=== PATIENT | female | born 1995 | race Caucasian/White ===

== ENCOUNTER 2017-02-24 21:16 | Emergency (ER) | payer MEDICAID ==
[2017-02-24 21:57] VITALS: BP 111/64
--- NOTE | 2017-02-24 23:24 | ER Document Report ---
ED General - General Chief Complaint: Drug Abuse Stated Complaint: HEADACHE,NAUSEA Time Seen by Provider: 02/24/17 23:24 Mode of Arrival: Ambulatory Information source: Patient Notes: This is a 22-year-old with a history of Percocet and oxycodone abuse who presents to the emergency room with which were withdrawal. Patient states she has had some nausea and some intermittent headache. She does report some right rib pain. Patient also states she has not had a period since October and then she may be . TRAVEL OUTSIDE OF THE [place] IN LAST 30 DAYS: No - HPI Onset: Just prior to arrival Onset/Duration: Sudden Quality of pain: No pain Severity: None Pain Level: Denies Associated symptoms: Nausea. denies: Chest pain, Shortness of breath Exacerbated by: Denies Relieved by: Denies Similar symptoms previously: No Recently seen / treated by doctor: No - Related Data Allergies/Adverse Reactions: No Known Allergies Allergy (Verified 02/24/17 21:50) Past Medical History - General Information source: Patient - Social History Smoking Status: Never Smoker Cigarette use (# per day): No Chew tobacco use (# tins/day): No Frequency of alcohol use: None Drug Abuse: Prescription drugs Lives with: Family Family History: Reviewed & Not Pertinent Patient has suicidal ideation: No Patient has homicidal ideation: No Pulmonary Medical History: Reports: Hx Asthma Renal/ Medical History: Denies: Hx Peritoneal Dialysis Psychiatric Medical History: Reports: Hx Attention Deficit Hyperactivity Disorder, Hx Bipolar Disorder - Immunizations Immunizations up to date: Yes Hx Diphtheria, Pertussis, Tetanus Vaccination: Yes Review of Systems - Review of Systems Constitutional: denies: Chills, Fever EENT: No symptoms reported Cardiovascular: No symptoms reported Respiratory: No symptoms reported Gastrointestinal: See HPI Genitourinary: No symptoms reported Female Genitourinary: No symptoms reported Musculoskeletal: No symptoms reported Skin: No symptoms reported Hematologic/Lymphatic: No symptoms reported Neurological/Psychological: No symptoms reported Physical Exam - Vital signs Vitals: Temp Pulse Resp BP Pulse Ox 98.6 F 67 16 111/64 97 02/24/17 21:50 02/24/17 21:50 02/24/17 21:50 02/24/17 21:50 02/24/17 21:50 Notes: Physical exam: GENERAL: 22-year-old female, alert and oriented 3, no acute distress. Patient requesting food at this time. HEAD: Atraumatic, normocephalic. EYES: Pupils equal round and reactive to light, extraocular movements intact, sclera anicteric, conjunctiva are normal. ENT: TMs normal, nares patent, oropharynx clear without exudates. Moist mucous membranes. NECK: Normal range of motion, supple without obvious mass or JVD. LUNGS: Breath sounds clear to auscultation bilaterally and equal. No wheezes rales or rhonchi. HEART: Regular rate and rhythm without murmurs, rubs or gallops. ABDOMEN: Soft, normoactive bowel sounds. No tenderness to palpation. No guarding, no rebound. No masses appreciated. EXTREMITIES: Normal range of motion, no pitting or edema. No clubbing or cyanosis. NEUROLOGICAL: Cranial nerves II through XII grossly intact. Normal speech, moving all extremities. PSYCH: Normal mood, normal affect. SKIN: Warm, Dry, normal turgor, no rashes or lesions noted. Bedside ultrasound: Patient does have an intrauterine at 14 weeks gestation with a heartbeat of 160. Course - Vital Signs Vital signs: Temp Pulse Resp BP Pulse Ox 98.6 F 67 16 111/64 97 02/24/17 21:50 02/24/17 21:50 02/24/17 21:50 02/24/17 21:50 02/24/17 21:50 - Laboratory Laboratory results interpreted by me: 02/24/17 23:26 Urine Urobilinogen 2.0 H Urine Ascorbic Acid 40 H Discharge - Discharge Clinical Impression: Intrauterine , Opiate withdrawal Condition: Stable Disposition: HOME, SELF-CARE Additional Instructions: As we discussed, the ultrasound shows a viable intrauterine at approximately 14 weeks gestation with a good heartbeat. Your urine test was normal. Because of the , you have to be careful about what medicines he take. You can take Benadryl for the withdrawal symptoms. Drink plenty of fluids and try to eat healthy. Prescriptions: Diphenhydramine HCl [Benadryl 25 mg Capsule] 25 mg PO Q6 PRN #14 capsule PRN Reason: Referrals: HEALTH DEPT,[facility] [NO LOCAL MD] - Follow up as needed (follow-up with the health department for your )
[2017-02-25 00:15] LABS: APPEARANCE,URINE SLIGHTLY-CLOUDY; BILIRUBIN,URINE NEGATIVE (NEGATIVE); GLUCOSE, URINE NEGATIVE (NEGATIVE); KETONES,URINE NEGATIVE (NEGATIVE); LEUKOCYTE ESTERASE,URINE NEGATIVE (NEGATIVE); NITRITE,URINE NEGATIVE (NEGATIVE); PROTEIN,URINE NEGATIVE (NEGATIVE)
== END 2017-02-25 01:39 | disposition home or self-care (01) ==
LOC: ER 21:16
DX: O99.322 Drug use complicating pregnancy, second trimester (principal); F11.23 Opioid dependence with withdrawal; R51 Headache; R11.0 Nausea; Z3A.14 14 weeks gestation of pregnancy
CPT/HCPCS: 81001; 87086; 99284

== ENCOUNTER 2018-04-07 13:43 | Emergency (ER) | payer SELFPAY ==
--- NOTE | 2018-04-07 14:37 | ER Document Report ---
Addendum entered and electronically signed by JUANI PHAN MD 04/09/18 11:15: Discharge - Discharge Clinical Impression: Acute confusion, Cocaine abuse UTI (urinary tract infection) Qualifiers: Urinary tract infection type: acute cystitis Hematuria presence: without hematuria Qualified Code(s): N30.00 - Acute cystitis without hematuria Condition: Stable Disposition: HOME, SELF-CARE Additional Instructions: You have been evaluated both medical and behavioral health teams and obtained appropriate for discharge. You are highly encouraged to follow-up with outpatient mental health and substance use treatment. You have been provided a local resource list of area providers, including mobile crisis contact information, if you change your mind and would like assistance. COCAINE ABUSE: Cocaine causes many dangerous medical problems. Problems can occur even with "usual" amounts. Cocaine affects judgement, creating a sense of invulnerability. Cocaine users often make bad decisions that seem "great" at the time. Most cocaine users eventually will be hurt by bad job performance, damaged personal relations, crime, and unsafe sexual practices. Toxic effects of cocaine can include seizures, hallucinations, delusions, high blood pressure, heart damage, or sudden . There's always the risk of a "bad batch." But heart attacks, brain hemorrhages, or cardiac arrest can occur unpredictably even with "normal" use. Injection of cocaine is risky for abscesses, endocarditis (heart infec tion), pneumonia, and AIDS. Withdrawal from cocaine often causes anxiety and drug cravings. Some users become paranoid and psychotic. Many treatment programs are available, but you must make the decision to quit. Medication can be prescribed to control the symptoms of cocaine toxicity (beta blockers or benzodiazepines). Withdrawal symptoms may require tranquilizers. FOLLOW-UP CARE: If you have been referred to a physician for follow-up care, call the physicians office for an appointment as you were instructed or within the next two days. If you experience worsening or a significant change in your symptoms, notify the physician immediately or return to the Emergency Department at any time for re-evaluation. Referrals: [facility] [Outside] - Follow up as needed JUANI KINNEY MD [Primary Care Provider] - Follow up as needed Addendum entered and electronically signed by AFY DAVIES LCSWA 04/09/18 11:04: Discharge - Discharge Clinical Impression: Acute confusion, Cocaine abuse UTI (urinary tract infection) Qualifiers: Urinary tract infection type: acute cystitis Hematuria presence: without hematuria Qualified Code(s): N30.00 - Acute cystitis without hematuria Condition: Stable Disposition: HOME, SELF-CARE Additional Instructions: You have been evaluated both medical and behavioral health teams and obtained appropriate for discharge. You are highly encouraged to follow-up with outpatient mental health and substance use treatment. You have been provided a local resource list of area providers, including mobile crisis contact information, if you change your mind and would like assistance. COCAINE ABUSE: Cocaine causes many dangerous medical problems. Problems can occur even with "usual" amounts. Cocaine affects judgement, creating a sense of invulnerability. Cocaine users often make bad decisions that seem "great" at the time. Most cocaine users eventually will be hurt by bad job performance, damaged personal relations, crime, and unsafe sexual practices. Toxic effects of cocaine can include seizures, hallucinations, delusions, high blood pressure, heart damage, or sudden . There's always the risk of a "bad batch." But heart attacks, brain hemorrhages, or cardiac arrest can occur unpredictably even with "normal" use. Injection of cocaine is risky for abscesses, endocarditis (heart infec tion), pneumonia, and AIDS. Withdrawal from cocaine often causes anxiety and drug cravings. Some users become paranoid and psychotic. Many treatment programs are available, but you must make the decision to quit. Medication can be prescribed to control the symptoms of cocaine toxicity (beta blockers or benzodiazepines). Withdrawal symptoms may require tranquilizers. FOLLOW-UP CARE: If you have been referred to a physician for follow-up care, call the physicians office for an appointment as you were instructed or within the next two days. If you experience worsening or a significant change in your symptoms, notify the physician immediately or return to the Emergency Department at any time for re-evaluation. Referrals: JUANI KINNEY MD [Primary Care Provider] - Follow up as needed [facility] [Outside] - Follow up as needed Original Note: ED Psych Disorder / Suicide - General Stated Complaint: ALTERED MENTAL STATUS Time Seen by Provider: 04/07/18 14:06 TRAVEL OUTSIDE OF THE [place] IN LAST 30 DAYS: No - HPI Notes: Patient is a 23-year-old female that presents to the emergency department for chief complaint of altered mental status. Patient was brought in by police who provided most of the HPI. Patient was found in the car of a stranger. They called 911 to have her removed from the vehicle. Patient appeared to be confuse when police arrived that he brought her to the emergency room. Patient currently has no complaints. She states her name is Lesley. When I asked her the year she states it is "12". She denies any homicidal or suicidal ideation. She denies any drug or alcohol use. Past Medical History: Negative Past Surgical History: Negative Social History: Denies tobacco, denies alcohol, denies drug use Family History: Reviewed and noncontributory for presenting illness Allergies: Reviewed, see documented allergy list. REVIEW OF SYSTEMS: CONSTITUTIONAL : No fever No chills No diaphoresis No recent illness EENT: No vision changes No congestion No sore throat CARDIOVASCULAR: No chest pain No palpitations RESPIRATORY: No shortness of breath No cough No difficulty breathing GASTROINTESTINAL: No abdominal pain No nausea No vomiting No diarrhea GENITOURINARY: No dysuria No hematuria No difficulty urinating MUSCULOSKELETAL: No back pain No leg pain No arm pain SKIN: No rashes No lesions LYMPHATIC: No swollen, enlarged glands. NEUROLOGICAL: No lightheadedness No headache No weakness No paresthesias PSYCHIATRIC: No anxiety No depression PHYSICAL EXAMINATION: Vital signs reviewed, nursing noted reviewed. GENERAL: Well-appearing, well-nourished and in no acute distress. HEAD: Atraumatic, normocephalic. EYES: Eyes appear normal, extraocular movements intact, sclera anicteric, conjunctiva are normal. ENT: nares patent, oropharynx clear without exudates. Moist mucous membranes. NECK: Normal range of motion, supple without lymphadenopathy LUNGS: Breath sounds clear to auscultation bilaterally and equal. No wheezes rales or rhonchi. HEART: Regular rate and rhythm without murmurs ABDOMEN: Soft, nontender, normoactive bowel sounds. No rebound, guarding, or rigidity. No masses appreciated. EXTREMITIES: Nontender, good range of motion, no pitting or edema. NEUROLOGICAL: Oriented to person and place, disoriented to time. Moves all extre mities spontaneously Motor and sensory grossly intact on exam. PSYCH: Flat affect, tangential thoughts SKIN: Warm, Dry, normal turgor, no rashes or lesions noted on exposed skin - Related Data Allergies/Adverse Reactions: No Known Allergies Allergy (Verified 02/24/17 21:50) Past Medical History - Social History Smoking Status: Never Smoker Family History: Reviewed & Not Pertinent Pulmonary Medical History: Reports: Hx Asthma Renal/ Medical History: Denies: Hx Peritoneal Dialysis Psychiatric Medical History: Reports: Hx Attention Deficit Hyperactivity Disorder, Hx Bipolar Disorder - Immunizations Immunizations up to date: Yes Hx Diphtheria, Pertussis, Tetanus Vaccination: Yes Physical Exam - Vital signs Vitals: Temp Pulse Resp BP Pulse Ox 98.3 F 80 18 130/77 H 98 04/07/18 14:06 04/07/18 14:06 04/07/18 14:06 04/07/18 14:06 04/07/18 14:06 Course - Re-evaluation Re-evalutation: 04/07/18 14:37 Vitals reviewed. Nursing notes reviewed. Patient is in no acute distress but does appear confused or on a chemical substance. Psych evaluated her and r eviewed previous visits to the emergency room which were for drug use. 04/07/18 18:28 Patient has remained hyperactive and agitated. She was given a dose of Ativan for symptomatic management. Urinalysis shows urinary tract infection however she has no leukocytosis or other Sirs criteria. She is not septic. She was given a dose of Rocephin in the ED for her UTI. She did test positive for coca ine and marijuana which may partially explain her current behavior. She is medically cleared for evaluation by psych in the morning. Laboratory 04/07/18 04/07/18 04/07/18 14:35 14:35 14:35 WBC 6.8 RBC 4.85 Hgb 12.6 Hct 38.6 MCV 80 MCH 25.9 L MCHC 32.5 RDW 18.3 H Plt Count 363 Seg Neutrophils % 49.6 Lymphocytes % 42.2 Monocytes % 6.5 Eosinophils % 1.2 Basophils % 0.5 Absolute Neutrophils 3.4 Absolute Lymphocytes 2.9 Absolute Monocytes 0.4 Absolute Eosinophils 0.1 Absolute Basophils 0.0 Sodium 145.0 Potassium 4.4 Chloride 107 Carbon Dioxide 25 Anion Gap 13 BUN 9 Creatinine 0.71 Est GFR ( Amer) > 60 Est GFR (Non-Af Amer) > 60 Glucose 97 Calcium 10.1 Total Bilirubin 0.4 Direct Bilirubin 0.2 Neonat Total Bilirubin Not Reportable Neonat Direct Bilirubin Not Reportable Neonat Indirect Bili Not Reportable AST 19 ALT 22 Alkaline Phosphatase 65 Total Protein 7.7 Albumin 4.6 Urine Color YELLOW Urine Appearance CLOUDY Urine pH 6.0 Ur Specific [place] 1.024 Urine Protein 30 H Urine Glucose (UA) NEGATIVE Urine Ketones NEGATIVE Urine Blood NEGATIVE Urine Nitrite POSITIVE H Urine Bilirubin NEGATIVE Urine Urobilinogen 4.0 H Ur Leukocyte Esterase MODERATE H Urine WBC (Auto) 63 Urine RBC (Auto) 21 Urine Bacteria (Auto) TRACE Squamous Epi Cells Auto 21 Urine Mucus (Auto) MANY Urine Ascorbic Acid NEGATIVE Urine HCG, Qual Salicylates < 1.0 L Urine Opiates Screen Urine Methadone Screen Acetaminophen < 10 L Ur Barbiturates Screen Ur Phencyclidine Scrn Ur Amphetamines Screen U Benzodiazepines Scrn Urine Cocaine Screen U Marijuana (THC) Screen Serum Alcohol < 10 04/07/18 04/07/18 14:35 14:35 WBC RBC Hgb Hct MCV MCH MCHC RDW Plt Count Seg Neutrophils % Lymphocytes % Monocytes % Eosinophils % Basophils % Absolute Neutrophils Absolute Lymphocytes Absolute Monocytes Absolute Eosinophils Absolute Basophils Sodium Potassium Chloride Carbon Dioxide Anion Gap BUN Creatinine Est GFR ( Amer) Est GFR (Non-Af Amer) Glucose Calcium Total Bilirubin Direct Bilirubin Neonat Total Bilirubin Neonat Direct Bilirubin Neonat Indirect Bili AST ALT Alkaline Phosphatase Total Protein Albumin Urine Color Urine Appearance Urine pH Ur Specific [place] Urine Protein Urine Glucose (UA) Urine Ketones Urine Blood Urine Nitrite Urine Bilirubin Urine Urobilinogen Ur Leukocyte Esterase Urine WBC (Auto) Urine RBC (Auto) Urine Bacteria (Auto) Squamous Epi Cells Auto Urine Mucus (Auto) Urine Ascorbic Acid Urine HCG, Qual NEGATIVE Salicylates Urine Opiates Screen NEGATIVE Urine Methadone Screen NEGATIVE Acetaminophen Ur Barbiturates Screen NEGATIVE Ur Phencyclidine Scrn NEGATIVE Ur Amphetamines Screen U Benzodiazepines Scrn NEGATIVE Urine Cocaine Screen UNCONFIRMED POSITIVE U Marijuana (THC) Screen UNCONFIRMED POSITIVE Serum Alcohol 04/07/18 18:29 - Vital Signs Vital signs: Temp Pulse Resp BP Pulse Ox 98.3 F 80 18 130/77 H 98 04/07/18 14:06 04/07/18 14:06 04/07/18 14:06 04/07/18 14:06 04/07/18 14:06 - Laboratory Result Diagrams: 04/07/18 14:35 04/07/18 14:35 Laboratory results interpreted by me: 04/07/18 04/07/18 04/07/18 14:35 14:35 14:35 MCH 25.9 L RDW 18.3 H Urine Protein 30 H Urine Nitrite POSITIVE H Urine Urobilinogen 4.0 H Ur Leukocyte Esterase MODERATE H Salicylates < 1.0 L Acetaminophen < 10 L - EKG Interpretation by Me Additional EKG results interpreted by me: 04/07/18 14:39 Interpreted by myself 1434: Normal sinus rhythm, rate 75, normal axis, no ectopy, no ST elevation Discharge - Discharge Clinical Impression: Acute confusion, Cocaine abuse UTI (urinary tract infection) Qualifiers: Urinary tract infection type: acute cystitis Hematuria presence: without hematuria Qualified Code(s): N30.00 - Acute cystitis without hematuria Condition: Stable Disposition: PSYCH HOSP/UNIT
--- NOTE | 2018-04-07 15:00 | PSYCHOLOGICAL NOTE ---
Psych Note - Psych Note Date seen by psych provider: 04/07/18 Time seen by psych provider: 14:35 Psych Note: No medication recommendation at this time Patient arrived to [facility] ED via EMS. Patient reportedly was sitting in a stranger's car; [employer] was called. Patient immediately attempted to hug clinician and identifies clinician as "Awa." It was explained to patient that the clinician was not Awa. Patient then reported to clinician that the clinician spells her name wrong after looking at the clinician's name ge. Patient was able to correctly identify that she is currently in the hospital in [facility]. Patient adamantly denies substance abuse however clearly is demonstrating altered mental status. Patient is unsteady on her feet, has difficulty concentrating, making odd comments and connections. When asked that the patient has a mental health history she denies. Patient is alert and orientated to person, place. It is unclear if patient is orientated to time and circumstance as patient appears to be under the influence and guarded. Patient is unkempt with unwashed hair and dirty clothes. Cognitive functioning is currently impaired; probable cause from substance use. Medication recommendations per [facility]'s contracted psychiatrist Dr. Carlos IZAGUIRRE are as follows Haldol 5 mg every 8 hours as needed Diagnosis Substance abuse per history 2011 patient reported alcohol and marijuana abuse 2016 patient was seen for opiate withdrawal 296.80 (F31.9) unspecified bipolar and related disorder per history Impression\\plan: Patient is recommended for IVC petition for overnight mental health observation. Patient is demonstrating behaviors indicating she is under the influence. Patient does have a history of substance abuse. At this time patient's insight, judgment, impulse control is impaired. At any time, if attending physician feels patient is appropriate for discharge, patient can be cleared from behavioral health and discharged. Otherwise, patient will be re- evaluated once sober. Dr. Wells was consulted on the care and management of this patient; attending physician is in agreement with recommendations and disposition.
[2018-04-07 15:02] LABS: ABSOLUTE EOSINOPHILS # (AUTO) 0.1 10^3/uL (0.0-0.6); ABSOLUTE LYMPHOCYTES (AUTO) 2.9 10^3/uL (0.5-4.7); ABSOLUTE MONOCYTES (AUTO) 0.4 10^3/uL (0.1-1.4); ABSOLUTE NEUT (AUTO) 3.4 10^3/uL (1.7-8.2); BASOPHILS % (AUTO) 0.5 % (0-2); EOSINOPHILS % (AUTO) 1.2 % (0-6); HEMATOCRIT 38.6 % (36.0-47.0); HEMOGLOBIN 12.6 g/dL (12.0-15.5); LYMPHOCYTES % (AUTO) 42.2 % (13-45); MEAN CORPUSCULAR HEMOGLOBIN 25.9 pg (27.0-33.4); MEAN CORPUSCULAR HGB CONC 32.5 g/dL (32.0-36.0); MEAN CORPUSCULAR VOLUME 80 fl (80-97); MONOCYTES % (AUTO) 6.5 % (3-13); PLATELET COUNT 363 10^3/uL (150-450); RED BLOOD COUNT 4.85 10^6/uL (3.72-5.28); RED CELL DISTRIBUTION WIDTH 18.3 % (11.5-14.0); SEGMENTED NEUTROPHILS % (AUTO) 49.6 % (42-78); TOTAL CELLS COUNTED % (AUTO) 100 %; WHITE BLOOD COUNT 6.8 10^3/uL (4.0-10.5)
[2018-04-07 15:06] LABS: APPEARANCE,URINE CLOUDY; BILIRUBIN,URINE NEGATIVE (NEGATIVE); COLOR,URINE YELLOW; GLUCOSE, URINE NEGATIVE (NEGATIVE); KETONES,URINE NEGATIVE (NEGATIVE); LEUKOCYTE ESTERASE,URINE MODERATE (NEGATIVE); NITRITE,URINE POSITIVE (NEGATIVE); PROTEIN,URINE 30 mg/dL (NEGATIVE); URINE SPECIFIC GRAVITY 1.024
[2018-04-07] MEDS ORDERED: CEFTRIAXONE INJ 1000 MG VIAL IV ONE (15:13)
[2018-04-07 15:16] LABS: ALANINE AMINOTRANSFERASE 22 U/L (9-52); ALBUMIN 4.6 g/dL (3.5-5.0); ALKALINE PHOSPHATASE 65 U/L (38-126); ANION GAP 13 (5-19); ASPARTATE AMINO TRANSFERASE 19 U/L (14-36); BILIRUBIN,DIRECT 0.2 mg/dL (0.0-0.4); BILIRUBIN,TOTAL 0.4 mg/dL (0.2-1.3); BLOOD UREA NITROGEN 9 mg/dL (7-20); CALCIUM 10.1 mg/dL (8.4-10.2); CARBON DIOXIDE 25 mmol/L (22-30); CHLORIDE 107 mmol/L (98-107); GLUCOSE 97 mg/dL (75-110); POTASSIUM 4.4 mmol/L (3.6-5.0); TOTAL PROTEIN 7.7 g/dL (6.3-8.2)
[2018-04-07 15:17] LABS: ACETAMINOPHEN < 10 ug/mL (10-30); ALCOHOL < 10 mg/dL (NONE DETECTED); SALICYLATE < 1.0 mg/dL (2.0-20.0)
[2018-04-07 15:19] LABS: URINE BARBITURATES SCREEN NEGATIVE; URINE BENZODIAZEPINES SCREEN NEGATIVE; URINE COCAINE SCREEN UNCONFIRMED POSITIVE; URINE MARIJUANA (THC) SCREEN UNCONFIRMED POSITIVE; URINE METHADONE SCREEN NEGATIVE; URINE PHENCYCLIDINE SCREEN NEGATIVE
[2018-04-07] MEDS ORDERED: LORAZEPAM 1 MG TABLET PO ONE (17:16)
--- NOTE | 2018-04-07 18:15 | EKG REPORT ---
SEVERITY:- NORMAL ECG - SINUS RHYTHM : Confirmed by: Efrem Perkins MD 07-Apr-2018 18:13:54
[2018-04-07] MEDS ORDERED: ZIPRASIDONE MESYLATE INJ/PF 20 MG SDV IM ONE (20:28)
[2018-04-08] MEDS ORDERED: HALOPERIDOL LACTATE INJ 5 MG/1 ML VIAL IM ONE (11:12)
[2018-04-08] MEDS: BENZTROPINE MESYLATE 1 MG TABLET PO SCH (11:45)
--- NOTE | 2018-04-08 17:07 | PSYCHOLOGICAL NOTE ---
Psych Note - Psych Note Date seen by psych provider: 04/08/18 Time seen by psych provider: 07:40 Psych Note: Reason for Consult: re-evaluation S/A and bizarre behavior Contact Permissions: Mala (mom) [phone], Du (sister) [phone] Patient is a 23 yo female presenting to ED yesterday with LE after being found in a strangers car. She has documented hx of S/A and toxicology was positive for cocaine and THC. Patient today is eating breakfast upon arrival to her room is compulsively cramming food into her mouth without taking time to breathe or chew and talking around her food. Alerted patient that it was difficult to understand her and there was no change in this behavior if anything, it worsened. Eye contact was poor and statements required clarification multiple times. However, she was able to communicate that she has no memory of why she was brought into ED/thinks it was her parents then states it was a joke her cousin was playing to see if she was using drugs. Pt admits using cocaine for last 2 days, occasional marijuana use, and hx of S/A in past. She denies IPT/OPT however, reports dx of ADHD, Bipolar DO, and PTSD due to father's . Pt. states she has 9th grade education, is not employed, has no legal problems, and lived with her sister Du until 2 days ago. She was not able to formulate a plan for potential discharge living arrangements other than "to be happy". Patient divides her attention between eating and darting her eyes at the door Patient was alert and oriented x3. Mood was "tired" with incongruent affect as she appeared to be eating compulsively. Pt. denies SI, HI and AV/H. However, she does appear to be responding to internal stimuli as evidenced by eye contact was poor though she darted her eyes at the doorway frequently and made statements "I know your out there. I can hear you/I'm not stupid. I know what you're saying". Thoughts were disorganized and pt was confused about her own hx changing her report several times. Conversational speech was impeded by food and rapid. Intellectual abilities were difficult to assess at this time. Attention/Concentration was impaired with pt needing redirection while insight, judgment, and impulse control were poor. Patient's mother Mala was admittedly poor historian and deferred collateral report to pt's older sister Du who collaborated mother's report that patient likely had intellectual disability that was first noted in pastry wrapper with "poor comprehension, always seeming younger than her age, and slow to learn/is not able to function on her own/hold a job/school/or take care of herself on the most basic level". Per Du, since their father's 6 years ago, pt left home and has been "wandering" being aided by strangers who pick her up/take her in/and often bring her to Du's home in [place] or to hospitals once they realize they are unable to help her. Pt has been missing for the last 3-4 months. Du received a call from a woman who reported that a man had taken patient in to care for her until she sobered then when he realized that she wasn't going to sober he dropped her off at what he thought was pt's friend's home. Pt was found by this woman in her father in law's truck and they kept her occupied until EMS arrived. To her knowledge, pt has never self-harmed but was at [facility] this month after making statement about wanting to be with her father. She has been prescribed Seroquel in the past and has diagnosis of ADHD, Bipolar, PTSD, with R/O of Schizophrenia. There is a not a formal diagnosis for IDD. Family MH hx includes depression, anxiety, substance abuse, and Bipolar D isorder. Medication recommendations per [facility]'s contracted psychiatrist Dr. Carlos IZAGUIRRE are as follows on 04/07/18 Haldol 5 mg every 8 hours as needed (was not started) 04/08/18 recommendations are as follows: Haldol 10mg IM NOW Haldol 5mg BID Cogentin 1mg QD Diagnosis Substance abuse per history 2011 patient reported alcohol and marijuana abuse 2016 patient was seen for opiate withdrawal 296.80 (F31.9) unspecified bipolar and related disorder per history Impression\\plan: Patient is recommended to remain on IVC for risk of harm to self or others as evidenced by pt appears to be responding to internal stimuli talking to unseen person in doorway/poor eye contact/eyes darting/poor concentration and demonstrating poor insight, judgment, and impulse control. Patient does have a history of substance abuse and per collateral report, Bipolar Disorder and is known to behave bizarrely talking to self, eating dirt etc. There is as well, concern of intellectual disability though no formal dx. Dr. Wells was consulted on the care and management of this patient; attending physician is in agreement with recommendations and disposition.
--- NOTE | 2018-04-08 17:56 | ER Document Report ---
Doctor's Note Notes: 04/08/18 17:54 This woman continues to seemingly respond to internal stimuli she is disorganized thought. Collateral is difficult to obtain on this patient and apparently her mother is a very little useful information. She has been medically cleared at this time has a dubious urinary tract infection per urinalysis as such do not believe she should continue Rocephin daily. Patient received Haldol IM times 110 mg. We will start Haldol 5 mg twice daily and Cogentin daily first dose capping now. We will plan to continue monitoring patient emergency department have moved for patient to undergo IVC following her 24-hour hold as I do think she represents a danger to herself still.
[2018-04-08] MEDS: HALOPERIDOL 5 MG TABLET PO SCH (18:22)
[2018-04-09 07:56] VITALS: BP 120/70
[2018-04-09] MEDS: HALOPERIDOL 5 MG TABLET PO SCH (09:17)
[2018-04-09] MEDS: BENZTROPINE MESYLATE 1 MG TABLET PO SCH (09:17)
--- NOTE | 2018-04-09 11:03 | PSYCHOLOGICAL NOTE ---
Psych Note - Psych Note Date seen by psych provider: 04/09/18 Time seen by psych provider: 10:00 Psych Note: Reason for consult:Substance abuse and bizarre behavior Check-in conducted with patient Patient reports that she knows she arrived to [facility] ED via EMS however does not know why she is currently here. When asked what drugs she took she states "they gave me something but I do not remember what." Patient was asked what she normally takes it which point she states that she does not do drugs. Patient's mood is slightly irritable and reports that she does not really want to talk however confirms she understands she is at the hospital in [facility]. She states that she does not take any medications because "I do not need them." When asked if she would like any resources for services she declines. No medication recommendation at this time Diagnosis Substance abuse per history 2011 patient reported alcohol and marijuana abuse 2016 patient was seen for opiate withdrawal 296.80 (F31.9) unspecified bipolar and related disorder per history Impression\\plan: Patient is recommended for rescind of IVC and is cleared from acute psychiatric services. Patient discloses that she has little memory of past events however is correctly able to identify her location and date. When asked if she took any drugs she stated "they gave me something but I do not remember." When asked any further questioning she then denied using and or misusing any medications and reports that she is not interested in taking any medications for her mental health as she "does not need it" and refuses any assistance for substance abuse. Patient was provided a local resource list which includes mobile crisis contact information if she changes her mind. Gabino bailey is highly encouraged to follow-up with both mental health and substance abuse treatment. Patient's sister came and picked up patient upon discharge. Dr. Wells was consulted on the care and management of this patient; attending physician is in agreement with recommendations and disposition.
--- NOTE | 2018-04-09 11:17 | ER Document Report ---
Doctor's Note Notes: 04/09/18 11:16 Rounds: Patient evaluated at bedside with mental health. Patient does not remember a lot of what happened to her. Lab studies were positive for marijuana and cocaine and likely amphetamines. Vital signs are all normal. Patient's urine looks like there could possibly be a UTI, but she has no symptoms of UTI. Patient appears to be medically stable for transfer or discharge. Karel Lala MD
== END 2018-04-09 11:21 | disposition home or self-care (01) ==
LOC: ER 13:43
DX: N30.00 Acute cystitis without hematuria (principal); F14.10 Cocaine abuse, uncomplicated; R41.0 Disorientation, unspecified
CPT/HCPCS: 93005; 36415; 80307 ×4; 85025; 81025; 80053; 81001; 93010; J1630; J3486; J0696

== ENCOUNTER 2018-11-14 15:21 | Emergency (ER) | payer SELFPAY ==
[2018-11-14 15:26] VITALS: BP 122/75
--- NOTE | 2018-11-14 15:50 | ER Document Report ---
HPI - HPI Patient complains to provider of: fall R rib pain Time Seen by Provider: 11/14/18 15:36 Pain Level: 5 Context: 23-year-old female with schizophrenia and bipolar disorder presents the emergency department after falling while jumping on the trampoline and landing on the metal bar on her right side. She said it happened about an hour ago and she is in significant pain. She says it hurts to take a deep breath. She did not hit her head or lose consciousness. She is not on anticoagulation. She does have range of motion. She denies any shoulder, elbow, any other injury on her right side. She denies being acutely short of breath or having any chest pain. No nausea or vomiting. She was a challenging historian because when I asked her if she would like something for pain she said yes but then she proceeded to just repeat everything I said and contradicted herself and said she was allergic to something that I presented. No other complaints - REPRODUCTIVE Reproductive: DENIES: : Past Medical History - Social History Smoking Status: Unknown if Ever Smoked Family History: Reviewed & Not Pertinent Pulmonary Medical History: Reports: Hx Asthma Renal/ Medical History: Denies: Hx Peritoneal Dialysis Psychiatric Medical History: Reports: Hx Attention Deficit Hyperactivity Disorder, Hx Bipolar Disorder - Immunizations Immunizations up to date: Yes Hx Diphtheria, Pertussis, Tetanus Vaccination: Yes Vertical Provider Document - CONSTITUTIONAL Notes: PHYSICAL EXAMINATION: Reviewed vital signs and charting by RN GENERAL: Alert, interacts well. No acute distress. HEAD: Normocephalic, atraumatic. EYES: Pupils equal and round. Extraocular movements intact. NECK: Full range of motion. Trachea midline. No midline cervical tenderness LUNGS: Clear to auscultation bilaterally, no wheezes, rales, or rhonchi. No respiratory distress. HEART: Regular rate and rhythm. No murmur CHEST: Tenderness to palpation over the lateral and anterior right lower ribs ABDOMEN: soft, non-tender. No distention. Bowel sounds present EXTREMITIES: Moves all 4 extremities spontaneously. No edema, No cyanosis. PSYCH: Normal affect, normal mood. SKIN: Warm, dry, normal turgor. No rashes or lesions noted. - INFECTION CONTROL TRAVEL OUTSIDE OF THE [place] IN LAST 30 DAYS: No Course - Re-evaluation Re-evalutation: 11/14/18 15:48 Patient in no acute distress breathing evenly in no respiratory distress, plan is to get a rib series on the right side to assess fracture versus no fracture. For now we will hold off on analgesia as I can get a clear history from the patient for allergies. 11/14/18 15:50 11/14/18 16:21 There is no evidence of fracture or rib dislocation on x-ray. No pneumothorax. Patient most likely sustained a rib contusion. At this point she is stable for discharge. - Vital Signs Vital signs: Temp Pulse Resp BP Pulse Ox 98.6 F 88 20 122/75 99 11/14/18 15:26 11/14/18 15:26 11/14/18 15:26 11/14/18 15:26 11/14/18 15:26 Discharge - Discharge Clinical Impression: Fall involving trampoline as cause of accidental injury Condition: Good Disposition: HOME, SELF-CARE Additional Instructions: You were seen in the emergency department this afternoon for a fall causing rib pain. X-ray did not show any evidence of fracture or dislocation which is very reassuring. You most likely bruised a rib. You can take Motrin 600 mg every 6 hours and/or Tylenol 1000 mg every 6 hours for pain and inflammation. Also, you can purchase some [id number] Aspercreme you can rub it over the site where it hurts the worst for some topical pain relief. If you develop acute shortness of breath, significant chest pain, have a hard time breathing, or have intractable pain please return to the emergency department for reevaluation. Referrals: JUANI KINNEY MD [Primary Care Provider] - Follow up as needed
--- NOTE | 2018-11-14 16:17 | RADIOLOGY REPORT (SQ) ---
EXAM DESCRIPTION: RIBS RIGHT W/PA CHEST COMPLETED DATE/TIME: 11/14/2018 4:06 pm REASON FOR STUDY: fall on R side COMPARISON: None. TECHNIQUE: Frontal view of the chest and additional views of the right ribs acquired. NUMBER OF VIEWS: Three view. LIMITATIONS: None. FINDINGS: FRONTAL CXR: No pneumothorax. No pleural effusion. No atelectasis or infiltrates. RIBS: No displaced rib fractures. No lytic or blastic bony lesions. OTHER: No other significant finding. IMPRESSION: NO PNEUMOTHORAX. NO DISPLACED RIB FRACTURES. COMMENT: SITE OF TRAUMA/COMPLAINT MARKED/STAMP COMPLETED: NO. TECHNICAL DOCUMENTATION: JOB ID: [id number] 1906 [employer]- All Rights Reserved Reading location - IP/workstation name: [email or web address]
== END 2018-11-14 16:58 | disposition home or self-care (01) ==
LOC: ER 15:21
DX: T14.90XA Injury, unspecified, initial encounter (principal); R07.81 Pleurodynia; R07.1 Chest pain on breathing; W17.89XA Other fall from one level to another, initial encounter; Y93.44 Activity, trampolining; J45.909 Unspecified asthma, uncomplicated
CPT/HCPCS: 99283

== ENCOUNTER 2019-07-19 10:59 | Emergency (ER) | payer SELFPAY ==
[2019-07-19] MEDS ORDERED: NORMAL SALINE 1000 ML 1,000 ML IV ONE (11:17)
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
[2019-07-19 11:32] LABS: ABSOLUTE LYMPHOCYTES (AUTO) 1.9 10^3/uL (0.5-4.7); ABSOLUTE MONOCYTES (AUTO) 0.6 10^3/uL (0.1-1.4); ABSOLUTE NEUT (AUTO) 6.7 10^3/uL (1.7-8.2); BASOPHILS % (AUTO) 0.3 % (0-2); HEMATOCRIT 34.1 % (36.0-47.0); HEMOGLOBIN 11.7 g/dL (12.0-15.5); LYMPHOCYTES % (AUTO) 20.4 % (13-45); MEAN CORPUSCULAR HEMOGLOBIN 30.4 pg (27.0-33.4); MEAN CORPUSCULAR HGB CONC 34.3 g/dL (32.0-36.0); MEAN CORPUSCULAR VOLUME 88 fl (80-97); MONOCYTES % (AUTO) 6.1 % (3-13); PLATELET COUNT 348 10^3/uL (150-450); RED BLOOD COUNT 3.85 10^6/uL (3.72-5.28); RED CELL DISTRIBUTION WIDTH 14.4 % (11.5-14.0); SEGMENTED NEUTROPHILS % (AUTO) 73.2 % (42-78); TOTAL CELLS COUNTED % (AUTO) 100 %; WHITE BLOOD COUNT 9.2 10^3/uL (4.0-10.5)
[2019-07-19] MEDS ORDERED: HALOPERIDOL 5 MG TABLET PO ONE (11:47)
[2019-07-19 11:49] LABS: ACETAMINOPHEN < 10 ug/mL (10-30); ALBUMIN 4.7 g/dL (3.5-5.0); ALCOHOL < 10 mg/dL (NONE DETECTED); ALKALINE PHOSPHATASE 78 U/L (38-126); ANION GAP 8 (5-19); ASPARTATE AMINO TRANSFERASE 44 U/L (14-36); BILIRUBIN,TOTAL 0.7 mg/dL (0.2-1.3); BLOOD UREA NITROGEN 16 mg/dL (7-20); CARBON DIOXIDE 25 mmol/L (22-30); CHLORIDE 107 mmol/L (98-107); CREATINE KINASE 574 U/L (30-135); GLUCOSE 85 mg/dL (75-110); POTASSIUM 3.6 mmol/L (3.6-5.0); SALICYLATE < 1.0 mg/dL (2.0-20.0); TOTAL PROTEIN 7.9 g/dL (6.3-8.2)
[2019-07-19 11:51] LABS: APPEARANCE,URINE SLIGHTLY-CLOUDY; BILIRUBIN,URINE NEGATIVE (NEGATIVE); COLOR,URINE DARK YELLOW; GLUCOSE, URINE NEGATIVE (NEGATIVE); KETONES,URINE 80 mg/dL (NEGATIVE); LEUKOCYTE ESTERASE,URINE NEGATIVE (NEGATIVE); NITRITE,URINE NEGATIVE (NEGATIVE); PROTEIN,URINE 100 mg/dL (NEGATIVE); UROBILINOGEN,URINE NEGATIVE mg/dL (<2.0)
--- NOTE | 2019-07-19 11:57 | RADIOLOGY REPORT (SQ) ---
EXAM DESCRIPTION: CHEST SINGLE VIEW IMAGES COMPLETED DATE/TIME: 07/19/2019 11:46 am REASON FOR STUDY: AMS COMPARISON: 05/18/2011 EXAM PARAMETERS: NUMBER OF VIEWS: One view. TECHNIQUE: Single frontal radiographic view of the chest acquired. RADIATION DOSE: NA LIMITATIONS: None. FINDINGS: LUNGS AND PLEURA: No opacities, masses or pneumothorax. No pleural effusion. MEDIASTINUM AND HILAR STRUCTURES: No masses. Contour normal. HEART AND VASCULAR STRUCTURES: Heart normal in size. Normal vasculature. BONES: No acute findings. HARDWARE: None in the chest. OTHER: No other significant finding. IMPRESSION: NO ACUTE RADIOGRAPHIC FINDING IN THE CHEST. TECHNICAL DOCUMENTATION: JOB ID: [id number] 2010 [employer]- All Rights Reserved Reading location - IP/workstation name: [email or web address]
[2019-07-19 12:03] LABS: URINE BARBITURATES SCREEN NEGATIVE; URINE BENZODIAZEPINES SCREEN NEGATIVE; URINE COCAINE SCREEN NEGATIVE; URINE MARIJUANA (THC) SCREEN NEGATIVE; URINE METHADONE SCREEN NEGATIVE; URINE PHENCYCLIDINE SCREEN NEGATIVE
[2019-07-19] MEDS ORDERED: CHLORPROMAZINE HCL 50 MG TABLET PO ONE (13:14)
[2019-07-19] MEDS ORDERED: AZITHROMYCIN 1 GM SUSP PACKET PO ONE (13:25)
[2019-07-19] MEDS ORDERED: CEFTRIAXONE INJ 250 MG VIAL IM ONE (13:25)
[2019-07-19 13:34] LABS: BACTERIA (WET MOUNT) 4+ BACTERIA SEEN; EPITHELIALS (WET MOUNT) 4+ EPITHELIALS SEEN; RBCS (WET MOUNT) 2+ RBCS SEEN; T.VAGINALIS (WET MOUNT) NO TRICHOMONAS SEEN; WBCS (WET MOUNT) 3+ WBCS SEEN; YEAST (WET MOUNT) NO YEAST SEEN
[2019-07-19] MEDS ORDERED: AZITHROMYCIN 250 MG TABLET ONE (14:41)
[2019-07-19] MEDS ORDERED: AZITHROMYCIN 250 MG TABLET PO ONE (14:42)
[2019-07-19 15:04] LABS: CHLAM PCR DETECTED (NOT DETECT)
--- NOTE | 2019-07-19 16:53 | EKG REPORT ---
SEVERITY:- OTHERWISE NORMAL ECG - SINUS TACHYCARDIA BORDERLINE RIGHT AXIS DEVIATION : Confirmed by: Noreen Min 19-Jul-2019 16:52:24
[2019-07-19] MEDS ORDERED: CHLORPROMAZINE HCL 50 MG TABLET PO SCH (20:00)
--- NOTE | 2019-07-19 20:16 | PSYCHOLOGICAL NOTE ---
Psych Note - Psych Note Date seen by psych provider: 07/19/19 Time seen by psych provider: 13:00 Psych Note: Reason for Consult: AMS Patient presents under the influence of methamphetamine. She is liable in her affect; moving from crying to calm to screaming. She is demonstrating flight of thought and delusional thought processes. She believes [facility] staff are people she knows and starts naming them and believes one of her nurses is with her (the patient's) 's child. Patient states she last use meth one year ago. When reminded it is currently in her system she begins to cry and shows her arm to clinician and states "they hurt me." Medication recommendations per [facility] contracted psychiatrist Dr. Carlos IZAGUIRRE are as follows: Thorazine 50 mg every 6 hours Cogentin 1 mg daily Impression/Plan: Patient is recommended for 24-hour petition for evaluation due to her being currently under the influence. Patient needs to have mental health observation. Medication recommendations have been provided. Dr. Wells was consulted to care management of this patient; any physicians in agreement with recommendations and disposition. Patient reevaluated: Patient is no longer under the influence and appropriate engages with clinician. Patient states that she was sober for 1 year however relapsed and used meth. Patient states she lives with her grandmother and feels safe living there and returning home. She denies any thoughts of wanting to hurt herself or others. Clinician discussed the importance of remembering "it is not how you fall is how you pick yourself up." Patient is encouraged to follow-up with outpatient substance abuse services. Patient again confirms she can return to her grandmother's home. Impression\\plan: Patient is recommended for rescind of 24-hour petition for evaluation and is cleared from acute psychiatric services. Patient is no longer under the influence of methamphetamines. Patient engages in organized and linear conversation and maintains good eye contact. Patient's mood is euthymic with congruent affect as evidenced by smiling and engaging with clinician. She denies any thoughts of wanting to harm herself or others. She appropriately engages with clinician and discusses relapsing with meth after 1 year sobriety. Patient was provided psychoeducation on importance of outpatient substance abuse treatment. Dr. Wells was consulted to care management of this patient; attending physicians in agreement with recommendations and disposition.
[2019-07-19 21:49] VITALS: BP 95/41
== END 2019-07-19 22:00 | disposition home or self-care (01) ==
LOC: ER 10:59
DX: O23.599 Infection of other part of genital tract in pregnancy, unspecified trimester (principal); R41.82 Altered mental status, unspecified; F19.10 Other psychoactive substance abuse, uncomplicated
CPT/HCPCS: 93005; 99285; 96372; 96360; 96361; 36415; 87210; 80307 ×4; 82550; 84702; 85025; 81025; 80053; 81001; 87491; 87591; 71045; 93010; J3490; J7030; J0696

== ENCOUNTER 2019-08-04 22:59 | Emergency (ER) | payer SELFPAY ==
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
[2019-08-05 00:26] LABS: ABSOLUTE MONOCYTES (AUTO) 0.6 10^3/uL (0.1-1.4); HEMOGLOBIN 12.3 g/dL (12.0-15.5); LYMPHOCYTES % (AUTO) 30.3 % (13-45); TOTAL CELLS COUNTED % (AUTO) 100 %
[2019-08-05 00:30] LABS: ABSOLUTE EOSINOPHILS # (AUTO) 0.1 10^3/uL (0.0-0.6); ABSOLUTE LYMPHOCYTES (AUTO) 2.5 10^3/uL (0.5-4.7); ABSOLUTE NEUT (AUTO) 5.1 10^3/uL (1.7-8.2); BASOPHILS % (AUTO) 0.5 % (0-2); EOSINOPHILS % (AUTO) 0.8 % (0-6); HEMATOCRIT 35.6 % (36.0-47.0); MEAN CORPUSCULAR HEMOGLOBIN 30.1 pg (27.0-33.4); MEAN CORPUSCULAR HGB CONC 34.6 g/dL (32.0-36.0); MEAN CORPUSCULAR VOLUME 87 fl (80-97); MONOCYTES % (AUTO) 7.1 % (3-13); PLATELET COUNT 290 10^3/uL (150-450); RED BLOOD COUNT 4.08 10^6/uL (3.72-5.28); RED CELL DISTRIBUTION WIDTH 14.8 % (11.5-14.0); SEGMENTED NEUTROPHILS % (AUTO) 61.3 % (42-78); WHITE BLOOD COUNT 8.3 10^3/uL (4.0-10.5)
[2019-08-05 00:43] LABS: ALBUMIN 4.2 g/dL (3.5-5.0); ALKALINE PHOSPHATASE 69 U/L (38-126); ANION GAP 10 (5-19); ASPARTATE AMINO TRANSFERASE 24 U/L (14-36); BILIRUBIN,TOTAL 0.6 mg/dL (0.2-1.3); BLOOD UREA NITROGEN 13 mg/dL (7-20); CALCIUM 9.7 mg/dL (8.4-10.2); CARBON DIOXIDE 23 mmol/L (22-30); CHLORIDE 105 mmol/L (98-107); GLUCOSE 101 mg/dL (75-110); POTASSIUM 3.5 mmol/L (3.6-5.0); TOTAL PROTEIN 7.1 g/dL (6.3-8.2)
[2019-08-05 00:44] LABS: ACETAMINOPHEN < 10 ug/mL (10-30); ALCOHOL < 10 mg/dL (NONE DETECTED)
[2019-08-05] MEDS ORDERED: LORAZEPAM 1 MG TABLET PO ONE (01:56)
[2019-08-05] MEDS ORDERED: HALOPERIDOL LACTATE INJ 5 MG/1 ML VIAL IM ONE (02:05)
[2019-08-05] MEDS ORDERED: DIPHENHYDRAMINE HCL 50 MG/ML VIAL IM ONE (02:06)
[2019-08-05] MEDS ORDERED: LORAZEPAM INJ 2 MG/1 ML VIAL IM ONE (02:06)
[2019-08-05 05:18] LABS: APPEARANCE,URINE CLEAR; BILIRUBIN,URINE NEGATIVE (NEGATIVE); COLOR,URINE AMBER; GLUCOSE, URINE NEGATIVE (NEGATIVE); KETONES,URINE TRACE mg/dL (NEGATIVE); LEUKOCYTE ESTERASE,URINE NEGATIVE (NEGATIVE); NITRITE,URINE NEGATIVE (NEGATIVE); PROTEIN,URINE 30 mg/dL (NEGATIVE); URINE SPECIFIC GRAVITY 1.029
[2019-08-05 05:30] LABS: URINE BARBITURATES SCREEN NEGATIVE; URINE BENZODIAZEPINES SCREEN NEGATIVE; URINE COCAINE SCREEN NEGATIVE; URINE MARIJUANA (THC) SCREEN NEGATIVE; URINE METHADONE SCREEN NEGATIVE; URINE PHENCYCLIDINE SCREEN NEGATIVE
--- NOTE | 2019-08-05 06:32 | EKG REPORT ---
SEVERITY:- OTHERWISE NORMAL ECG - SINUS RHYTHM BORDERLINE RIGHT AXIS DEVIATION : Confirmed by: Efrem Perkins MD 05-Aug-2019 06:31:18
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
[2019-08-05] MEDS ORDERED: BENZTROPINE MESYLATE INJ 2 MG/2 ML AMPULE IM SCH (14:45)
--- NOTE | 2019-08-05 14:47 | ER Document Report ---
Doctor's Note Notes: 08/05/19 14:46 Vital signs as recorded. Labs as recorded. The psychiatry team is seen and assessed the patient. They have had me start the patient on Thorazine and Cogentin. They were attempt to get the patient placed at [facility] for further assessment and treatment.
[2019-08-05] MEDS: CHLORPROMAZINE HCL INJ 25 MG/1 ML AMPULE IM SCH ×2 (14:58→21:40)
[2019-08-05 21:33] VITALS: BP 95/66
--- NOTE | 2019-08-05 23:32 | ER Document Report ---
Doctor's Note Notes: 08/05/19 23:32 Notified by the psychosocial team that patient will be transferred to [place]. She is an IVC, has methamphetamine abuse issues. I went in to see the patient. She states she is tired, "do not want no help" with her drug issues, but has no other acute medical complaints or concerns. Patient is medically cleared here to be cared for at [place].
== END 2019-08-05 23:52 ==
LOC: ER 22:59
DX: F90.9 Attention-deficit hyperactivity disorder, unspecified type (principal); F15.10 Other stimulant abuse, uncomplicated; F31.9 Bipolar disorder, unspecified
CPT/HCPCS: 93005; 99285; 96372; 36415; 80307 ×5; 85025; 80053; 81001; 93010; G0480; J0515; J3230; J1200; J1630; J2060

== ENCOUNTER 2019-08-11 15:07 | Emergency (ER) | payer SELFPAY ==
--- NOTE | 2019-08-11 15:36 | ER Document Report ---
ED Psych Disorder / Suicide - General TRAVEL OUTSIDE OF THE [place] IN LAST 30 DAYS: No <LIZETH SANCHEZ - Last Filed: 08/11/19 16:12> <AISHA RON - Last Filed: 08/11/19 16:44> <ALYCE ROSE - Last Filed: 08/11/19 22:38> - General Chief Complaint: Psych Problem Stated Complaint: IVC WITH PAPERS Time Seen by Provider: 08/11/19 15:21 Notes: CHIEF COMPLAINT: IVC HPI: History is obtained from the please officer with the patient, prior charts. Patient difficult to obtain history from. 24-year-old female who is been seen here multiple times recently for psychiatric problems and methamphetamine addiction brought back again because the area she is staying in called the police and told them that patient has been acting out and was threatening to run into traffic. The please officer indicates that he was called out to this area yesterday about this patient. He states the people that are staying at the location where the patient lives at have informed police that they cannot manage the patient there. He states that it is "a gathering of street people" and not truly a prison house. Patient denies drug use currently. She denies causing problems and states she does not understand why they have called the police on her ROS: See HPI - all other systems were reviewed and are otherwise negative Constitutional: no fever Eyes: no drainage ENT: no runny nose Cardiovascular: no chest pain Resp: no SOB, no cough GI: no vomiting, no abdominal pain : no dysuria Integumentary: no rash Allergy: no hives Musculoskeletal: no extremity pain Neurological: no weakness MEDICATIONS: I agree with the patient medications as charted by the RN. ALLERGIES: I agree with the allergies as charted by the RN. PAST MEDICAL HISTORY/PAST SURGICAL HISTORY: Reviewed and agree as charted by RN. SOCIAL HISTORY: Reviewed and agree as charted by RN. FAMILY HISTORY: No significant familial comorbid conditions directly related to patient complaint EXAM: Reviewed vital signs as charted by RN. CONSTITUTIONAL: Alert and oriented and responds inappropriately to questions. Disheveled-appearing; tearful HEAD: Normocephalic; atraumatic EYES: PERRL; Conjunctivae clear, sclerae non-icteric ENT: normal nose; no rhinorrhea; moist mucous membranes; pharynx without lesions noted, no uvula edema or deviation, no tonsillar hypertrophy, phonation normal NECK: Supple without meningismus; non-tender; no cervical lymphadenopathy, no masses CARD: RRR; no murmurs, no clicks, no rubs, no gallops; symmetric distal pulses RESP: Normal chest excursion without splinting or tachypnea; breath sounds clear and equal bilaterally; no wheezes, no rhonchi, no rales, pulse oximetry 97% on room air not hypoxic ABD/GI: Normal bowel sounds; non-distended; soft, non-tender, no rebound, no guarding; no palpable organomegaly or masses. BACK: The back appears normal and is non-tender to palpation, there is no CVA tenderness EXT: Normal ROM in all joints; non-tender to palpation; no cyanosis, no effusions, no edema SKIN: Normal color for age and race; warm; dry; good turgor; no acute lesions noted NEURO: Moves all extremities equally; Motor and sensory function intact PSYCH: The patient's mood and manner are tearful and crying. Grooming and personal hygiene are disheveled. MDM: 24-year-old female sent in on [employer] papers for possibly indicating to others that she may harm herself. History of methamphetamine use has been seen twice recently for similar complaints. Will obtain screening labs, have patient see psychiatric services. Patient denies wanting to harm herself (LIZETH SANCHEZ) - Related Data Allergies/Adverse Reactions: No Known Allergies Allergy (Verified 11/14/18 15:21) Past Medical History - Social History Family History: Reviewed & Not Pertinent Pulmonary Medical History: Reports: Hx Asthma Renal/ Medical History: Denies: Hx Peritoneal Dialysis Psychiatric Medical History: Reports: Hx Attention Deficit Hyperactivity Disorder, Hx Bipolar Disorder - Immunizations Immunizations up to date: Yes Hx Diphtheria, Pertussis, Tetanus Vaccination: Yes <LIZETH SANCHEZ - Last Filed: 08/11/19 16:12> - Social History Smoking Status: Unknown if Ever Smoked <ALYCE ROSE - Last Filed: 08/11/19 22:38> Physical Exam - Vital signs Vitals: Temp Pulse Resp BP Pulse Ox 99.1 F 107 H 18 115/60 97 08/11/19 20:10 08/11/19 20:10 08/11/19 20:10 08/11/19 20:10 08/11/19 20:10 Course <LIZETH SANCHEZ - Last Filed: 08/11/19 16:12> <AISHA RON - Last Filed: 08/11/19 16:44> - Laboratory Result Diagrams: 08/11/19 18:54 08/11/19 18:54 <ALYCE ROSE - Last Filed: 08/11/19 22:38> - Re-evaluation Re-evalutation: 08/11/19 15:52 spoke with Jason Wells, psychiatric who will evaluate patient. Patient has been seen by Flor from the psychiatric team. 08/11/19 16:12 report given to alyce rose, awaiting clearance for psych. It was noted on review of her prior records on July 18 she had a positive test (LIZETH SANCHEZ) 08/11/19 16:44 Mental health worker Flor came and informed me that patient's medications need to be discontinued as she is . Medications discontinued at this time. (AISHA RON) 08/11/19 21:36 Lungs he still tachycardic hematology is unremarkable. Chemistries are normal. AST and ALT are elevated, this is most likely due to the patient's drug use. hCG is negative, which most likely means that patient miscarried from 2 days of visits ago. Toxicology shows marijuana and amphetamines. Urinalysis is unremarkable. At this time, the patient is medically clear for mental health evaluation. They are recommending Thorazine 50 mg IM nightly and Cogentin 1 mg IM daily. Orders placed. (ALYCE ROSE) - Vital Signs Vital signs: Temp Pulse Resp BP Pulse Ox 99.1 F 107 H 18 115/60 97 08/11/19 20:48 08/11/19 20:10 08/11/19 20:10 08/11/19 20:10 08/11/19 20:10 - Laboratory Laboratory results interpreted by me: 08/11/19 08/11/19 08/11/19 18:54 18:54 19:14 Hct 34.9 L RDW 14.5 H Glucose 122 H AST 146 H ALT 124 H Urine Protein 30 H Urine Ketones TRACE H Urine Urobilinogen 4.0 H Salicylates < 1.0 L Acetaminophen < 10 L Discharge <LIZETH SANCHEZ - Last Filed: 08/11/19 16:12> <AISHA RON - Last Filed: 08/11/19 16:44> <ALYCE ROSE - Last Filed: 08/11/19 22:38> - Discharge Clinical Impression: Methamphetamine use, Marijuana use Condition: Stable Disposition: PSYCH HOSP/UNIT
[2019-08-11] MEDS ORDERED: CHLORPROMAZINE HCL INJ 25 MG/1 ML AMPULE IM ONE (15:39)
[2019-08-11] MEDS ORDERED: CHLORPROMAZINE HCL INJ 25 MG/1 ML AMPULE IM SCH (16:30)
[2019-08-11] MEDS ORDERED: BENZTROPINE MESYLATE INJ 2 MG/2 ML AMPULE IM SCH (16:30)
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
[2019-08-11 19:10] LABS: ABSOLUTE EOSINOPHILS # (AUTO) 0.1 10^3/uL (0.0-0.6); ABSOLUTE LYMPHOCYTES (AUTO) 2.1 10^3/uL (0.5-4.7); ABSOLUTE MONOCYTES (AUTO) 0.5 10^3/uL (0.1-1.4); ABSOLUTE NEUT (AUTO) 2.8 10^3/uL (1.7-8.2); BASOPHILS % (AUTO) 0.3 % (0-2); EOSINOPHILS % (AUTO) 1.1 % (0-6); HEMATOCRIT 34.9 % (36.0-47.0); LYMPHOCYTES % (AUTO) 38.8 % (13-45); MEAN CORPUSCULAR HEMOGLOBIN 29.5 pg (27.0-33.4); MEAN CORPUSCULAR HGB CONC 34.4 g/dL (32.0-36.0); MEAN CORPUSCULAR VOLUME 86 fl (80-97); MONOCYTES % (AUTO) 8.9 % (3-13); PLATELET COUNT 260 10^3/uL (150-450); RED BLOOD COUNT 4.07 10^6/uL (3.72-5.28); RED CELL DISTRIBUTION WIDTH 14.5 % (11.5-14.0); SEGMENTED NEUTROPHILS % (AUTO) 50.9 % (42-78); TOTAL CELLS COUNTED % (AUTO) 100 %; WHITE BLOOD COUNT 5.5 10^3/uL (4.0-10.5)
[2019-08-11 19:31] LABS: ALKALINE PHOSPHATASE 82 U/L (38-126); ANION GAP 7 (5-19); ASPARTATE AMINO TRANSFERASE 146 U/L (14-36); BILIRUBIN,TOTAL 0.5 mg/dL (0.2-1.3); BLOOD UREA NITROGEN 17 mg/dL (7-20); CALCIUM 9.3 mg/dL (8.4-10.2); CARBON DIOXIDE 30 mmol/L (22-30); CHLORIDE 101 mmol/L (98-107); GLUCOSE 122 mg/dL (75-110); POTASSIUM 3.7 mmol/L (3.6-5.0); TOTAL PROTEIN 6.7 g/dL (6.3-8.2)
[2019-08-11 19:34] LABS: APPEARANCE,URINE CLOUDY; BILIRUBIN,URINE NEGATIVE (NEGATIVE); COLOR,URINE AMBER; GLUCOSE, URINE NEGATIVE (NEGATIVE); KETONES,URINE TRACE mg/dL (NEGATIVE); LEUKOCYTE ESTERASE,URINE NEGATIVE (NEGATIVE); NITRITE,URINE NEGATIVE (NEGATIVE); PROTEIN,URINE 30 mg/dL (NEGATIVE); URINE SPECIFIC GRAVITY 1.027
[2019-08-11 19:47] LABS: URINE BARBITURATES SCREEN NEGATIVE; URINE BENZODIAZEPINES SCREEN NEGATIVE; URINE COCAINE SCREEN NEGATIVE; URINE METHADONE SCREEN NEGATIVE; URINE PHENCYCLIDINE SCREEN NEGATIVE
[2019-08-11 19:57] LABS: URINE MARIJUANA (THC) SCREEN UNCONFIRMED POSITIVE
[2019-08-11 19:58] LABS: ACETAMINOPHEN < 10 ug/mL (10-30); ALCOHOL < 10 mg/dL (NONE DETECTED); SALICYLATE < 1.0 mg/dL (2.0-20.0)
[2019-08-11] MEDS: CHLORPROMAZINE HCL INJ 25 MG/1 ML AMPULE IM SCH (22:58)
[2019-08-11] MEDS: BENZTROPINE MESYLATE INJ 2 MG/2 ML AMPULE IM SCH (22:58)
[2019-08-12] MEDS: CHLORPROMAZINE HCL INJ 25 MG/1 ML AMPULE IM SCH ×2 (05:14→14:32)
--- NOTE | 2019-08-12 08:39 | ER Document Report ---
Doctor's Note Notes: 08/12/19 08:38 Patient is not based on lab work done yesterday. Patient is eating in her bed at this time awake and alert. No distress 08/12/19 13:27 there is a question of patient having lice, there are some matted areas of hair with possible small mobile insects or larvae. will treat with Nix.
[2019-08-12] MEDS: BENZTROPINE MESYLATE INJ 2 MG/2 ML AMPULE IM SCH (10:06)
[2019-08-12] MEDS ORDERED: PERMETHRIN 1% LOTION 59 ML TP ONE (13:26)
--- NOTE | 2019-08-12 15:18 | EKG REPORT ---
SEVERITY:- NORMAL ECG - SINUS RHYTHM : Confirmed by: Tiffany Wade MD 12-Aug-2019 15:17:34
--- NOTE | 2019-08-12 21:41 | PSYCHOLOGICAL NOTE ---
Psych Note - Psych Note Date seen by psych provider: 08/12/19 Time seen by psych provider: 13:10 Psych Note: Reason for Consult: IVC Check in conducted with patient: Patient originally is calm and polite with clinician; however, patient quickly escalated and became very loud and vocal kicking clinician out of her room. Prior to patient becoming upset, the patient disclosed she has diabetes but has not been taking her medications. When asked how she currently feels she reports "great, I can feel my feet." It is noted the patient does not have a medical diagnosis of diabetes. The patient is observed attempting to comb her hair, there are two very large matted sections in the patient's care that has visible larva illustrating the patient's poor hygiene. Patient is observed standing in the door and sees clinician; patient becomes very excited and childlike and states "I know you...I remember you." Clinician spoke with DSS Mailer, Nereyda, with APS. She reports the patient has 2 open cases on the patient and requested updated information on patient. She presented with a Request for Information page with patient's name and date of . Information is provided per [facility] 108A-[id number]. Medication recommendations per [facility] contracted psychiatrist Dr. Carlos MD are as follows: Add Throazine 50MG, every 6 hours Add Cogentin 1MG, now, then daily Impression/Plan: Patient is recommended to continue IVC; paperwork is signed and placed in patient's chart. Patient is demonstrating liability and is unclear in her orientation with circumstance. Patient will be reevaluated. Dr. Wells was consulted on the care and management of this patient; attending physician is in agreement with recommendations and disposition.
--- NOTE | 2019-08-12 22:24 | ER Document Report ---
Doctor's Note Notes: 08/12/19 22:23 Patient is resting no acute distress at this time. Wanders at time but stays in her room. Voices no complaints at this time. (MINERVA CAMPBELL) 08/13/19 12:34 Resting quietly at this time has been evaluated by psychiatric team. She verbalizes no suicidal or homicidal ideation she is able to answer all questions appropriately at this time she has no longer acting out. Psychiatric team do not believe that she is a threat to herself at this time and have rescinded the patient's IVC. Patient has been eating and drinking today with no difficulty. She has been ambulatory. She has not been overtly depressed or manic. She does voice that she would like to leave. (LIZETH SANCHEZ)
[2019-08-13] MEDS: CHLORPROMAZINE HCL INJ 25 MG/1 ML AMPULE IM SCH ×4 (04:47→11:11)
[2019-08-13] MEDS ORDERED: PERMETHRIN 1% LOTION 59 ML TP ONE (09:00)
[2019-08-13 09:23] VITALS: BP 102/61
[2019-08-13] MEDS: BENZTROPINE MESYLATE INJ 2 MG/2 ML AMPULE IM SCH (11:11)
--- NOTE | 2019-08-13 12:08 | PSYCHOLOGICAL NOTE ---
Psych Note - Psych Note Date seen by psych provider: 08/13/19 Time seen by psych provider: 11:00 Psych Note: Reason for Consult: IVC Check in conducted with patient: Patient is calm and engages with clinician appropriate during medications administrating by attending nurse. Patient is able to answer orientation question correctly and is clear about her circumstances bring her to [facility] (yesterday she was still showing some confusion around circumstances). She is able to articles her needs and wants as evidenced by requesting some thing to eat and apple juice, wanting to return to [facility] and requesting assistance in transportation as she currently has no way to return there. She declined assistance with her hair stating "don't worry about it honey, I can deal with it when I get home." She declines detox and substance abuse treatment resources; however, it will be provided at discharge in case she changes her mind. Clinician spoke with DSS Endodontics Dentist, Nereyda, with [facility]PS. Clinician provided up date on status of patient's case. She confirms it appears the patient is choosing her life style and is uninterested in assistance. She reports she will be staffing the case with her medical records supervisor for probable closing her cases with the patient. Information is provided per [facility] 108A-103. Impression/Plan: Patient is recommended for rescind of IVC and is cleared from acute psychiatric services; paperwork is signed and placed in patient's chart. Patient demonstrates orientation (to include circumstance) and is clearly able to articulate her needs and wants. Patient is calm and no longer demonstrating manic behaviors as evidenced by calmly engaging with clinician and no further behavioral outbursts. She declines further assistance and reports she will continue working on her hair when she arrives home. Patient voluntarily took a shower yesterday. At this time she is currently demonstrating self-control, judgment and discretion in the personal conduct for her responsibility and social interactions to satisfy nourishment, personal or medical care, senior living, and safety. There is no current supporting evidence that the patient will suffer a serious physical debilitation within the near future due to bed bug, hair lice, ect. Patient is encouraged to follow up with outpatient substance abuse services and has been provider resources if she changes her mind. Dr. Wells was consulted on the care and management of this patient; attending physician is in agreement with recommendations and disposition.
== END 2019-08-13 13:11 | disposition home or self-care (01) ==
LOC: ER 15:07
DX: F19.10 Other psychoactive substance abuse, uncomplicated (principal); F12.90 Cannabis use, unspecified, uncomplicated; J45.909 Unspecified asthma, uncomplicated
CPT/HCPCS: 93005; 99285; 96372; 36415; 80307 ×4; 84702; 85025; 80053; 81001; 93010; J0515 ×3; J3230 ×3; J3490

== ENCOUNTER 2020-01-25 12:39 | Emergency (ER) | payer SELFPAY ==
[2020-01-25] MEDS ORDERED: DIPHENHYDRAMINE HCL 50 MG/ML VIAL IM ONE (12:44)
[2020-01-25] MEDS ORDERED: HALOPERIDOL LACTATE INJ 5 MG/1 ML VIAL IV ONE (12:44)
[2020-01-25] MEDS ORDERED: HALOPERIDOL LACTATE INJ 5 MG/1 ML VIAL IM ONE (12:44)
--- NOTE | 2020-01-25 14:05 | ER Document Report ---
Entered by TAYA JOSÉ SCRIBE 01/25/20 1246 Acting as scribe for:CODI ALVAREZ MD ED General <ANGEL CHUN - Last Filed: 01/25/20 17:56> - General Information source: Emergency Med Personnel Cannot obtain history due to: Altered mental status TRAVEL OUTSIDE OF THE [place]. IN LAST 30 DAYS: No <CODI ALVAREZ - Last Filed: 01/25/20 19:00> - General Stated Complaint: BEHAVIORAL PROBLEM Time Seen by Provider: 01/25/20 12:40 Primary Care Provider: [facility] [Outside] - Follow up as needed (Local Voluntary Inpatient Detoxification) [facility] [Outside] - Follow up as needed [facility] [Outside] - Follow up as needed (To initiate services walk ins are Monday-Monday 8:00AM-4:30PM.) [facility] [Outside] - Follow up as needed Notes: This 24 year old female patient presents to the emergency department today via EMS after being found walking down the street. Patient is known to abuse methamphetamine and cocaine and her behavior today is consistent with methamphetamine. History is limited secondary to the patient's intoxication. (CODI ALVAREZ) - Related Data Allergies/Adverse Reactions: No Known Allergies Allergy (Verified 11/14/18 15:21) Past Medical History - General Information source: Emergency Med Personnel, [facility] Records Cannot obtain history due to: Altered mental status - Social History Smoking Status: Current Every Day Smoker Cigarette use (# per day): Yes Chew tobacco use (# tins/day): No Smoking Education Provided: No Drug Abuse: Cocaine, Methamphetamine Family History: Reviewed & Not Pertinent Pulmonary Medical History: Reports: Hx Asthma Renal/ Medical History: Denies: Hx Peritoneal Dialysis Psychiatric Medical History: Reports: Hx Attention Deficit Hyperactivity Disorder, Hx Bipolar Disorder - Immunizations Immunizations up to date: Yes Hx Diphtheria, Pertussis, Tetanus Vaccination: Yes <CODI ALVAREZ - Last Filed: 01/25/20 19:00> Review of Systems - Review of Systems -: Yes ROS unobtainable due to patient's medical condition <CODI ALVAREZ - Last Filed: 01/25/20 19:00> Physical Exam <CODI ALVAREZ - Last Filed: 01/25/20 19:00> - Vital signs Vitals: Temp Pulse Resp BP Pulse Ox 98.5 F 90 15 96/51 L 100 01/25/20 14:16 01/25/20 14:16 01/25/20 14:16 01/25/20 14:16 01/25/20 14:16 - Notes Notes: Physical Exam: General: Alert, limited exam, hyperactive consistent with methamphetamine abuse. Seems paranoid. HEENT: Normocephalic. Atraumatic. PERRLA. Extraocular movements intact. Oropharynx clear. Picking scars on face. Poor dentition consistent with meth abuse. Neck: Supple. Heart: Regular rate and rhythm without murmur. Respiratory: No respiratory distress. Lungs clear to auscultation. Abdominal: Normal Inspection. No distension. Reexam after the patient had been sedated and resting for a few hours, abdomen is soft with active bowel sounds and nontender. Extremities: Moves all four extremities. Skin: Picking scars on face consistent with meth abuse. (CODI ALVAREZ) Course - Laboratory Result Diagrams: 01/25/20 14:08 01/25/20 14:08 <ANGEL CHUN - Last Filed: 01/25/20 17:56> - Laboratory Result Diagrams: 01/25/20 14:08 01/25/20 14:08 - EKG Interpretation by Md EKG shows normal: Sinus rhythm, [place], Intervals, QRS Complexes, ST-T Waves Rate: Normal - 89 Rhythm: NSR <CODI ALVAREZ - Last Filed: 01/25/20 19:00> - Re-evaluation Re-evalutation: 01/25/20 15:18 At this time the patient is resting comfortably, she is easily aroused. She denies using any drugs today despite the physical evidence to the contrary. 01/25/20 15:20 Urine drug screen is positive for methamphetamine and marijuana. 01/25/20 18:56 Patient is now awake, eating, she does not want any help with her drug abuse problem. She will be discharged home at this time. (CODI ALVAREZ) - Vital Signs Vital signs: Temp Pulse Resp BP Pulse Ox 98.9 F 91 14 114/64 100 01/25/20 17:42 01/25/20 17:42 01/25/20 17:42 01/25/20 17:42 01/25/20 17:42 - Laboratory Laboratory results interpreted by me: 01/25/20 01/25/20 01/25/20 14:08 14:08 14:08 RDW 14.4 H Lymph % (Auto) 12.0 L Seg Neutrophils % 83.0 H Potassium 3.5 L Calcium 10.5 H AST 99 H ALT 162 H Creatine Kinase 431 H Urine Nitrite POSITIVE H Urine Urobilinogen 2.0 H Ur Leukocyte Esterase SMALL H Salicylates < 1.0 L Acetaminophen < 10 L Discharge <LAYANGEL - Last Filed: 01/25/20 17:56> <CODI ALVAREZ - Last Filed: 01/25/20 19:00> - Discharge Clinical Impression: Methamphetamine abuse Altered mental status Qualifiers: Altered mental status type: transient alteration of awareness Qualified Code(s): R40.4 - Transient alteration of awareness Condition: Stable Disposition: HOME, SELF-CARE Additional Instructions: You have been evaluated by both medical and behavioral health teams for altered mental status and methamphetamine use. You have been deemed appropriate for discharge. While in the emergency department you received the following s ervices: Medical screening and assessment, nursing services, dietary services, pharmacological services, one-on-one counseling and/or psychotherapy, environmental services, and continuous observation by a patient rhic systems safety engineer. You are recommended to abstain from methamphetamine and other drug us e. Methamphetamine use can cause substance induced psychosis like that seen in Schizophrenia. AMPHETAMINE / METHAMPHETAMINE ABUSE: Amphetamines are addicting stimulants. Amphetamines overstimulate the nervous system and give a false feeling of power and mastery. These drugs may be obtained as prescription pills for weight loss, narcolepsy, or attention-deficit disorder. More often they're bought as an illegal street drug, methamphetamine (crank, crystal, speed). Using amphetamines repeatedly can lead to serious medical problems including malnutrition, severe depression, and paranoia. It can take increasing amounts to feel good. Eventually, there will be a "burn out." When you go off amphetamines there is a period of depression that may last for weeks or even m onths. High doses of amphetamines can cause seizures, confusion, hallucinations, delusions, high blood pressure, muscle damage, heart damage, or sudden . Many times these deadly complications occur even with "normal" doses. Injection of amphetamines is risky for developing abscesses, endocarditis (heart infection), pneumonia, and AIDS. Withdrawal from amphetamines often causes anxiety, depression, and drug cravings. Some users become paranoid and psychotic. There may be cramps, nausea, and vomiting. Many treatment programs are available, but you must make the decision to quit. Medication can be prescribed to control the symptoms of amphetamine toxicity (beta blockers or benzodiazepines). Withdrawal symptoms may require tranquilizers. Altered Mental Status (psychosis, paranoia, mood changes) An altered mental status is a change in the normal functioning of the brain. This alteration of function can range from minor decreased brain function with some forgetfulness and confusion to complete loss of consciousness and coma. There are many possible causes of an altered mental status and include brain injuries such as trauma or strokes, problems with oxygen supply to the brain, fever and infections of the brain and/or elsewhere in the body, metabolic abnormalities such as low or high blood sugar, overdoses or excessive medication ingestion, and mental and psychiatric illnesses. Sometimes the altered mental status resolves and a definite cause is not determined. If a cause for your altered mental status was found, it has likely been corrected. Your evaluation has not shown any condition that requires that you be admitted to the hospital. It is believed that you are safe to leave and return to your home. If you have a return of your symptoms, you should return for re-evaluation. FOLLOW-UP CARE: You are recommended for voluntary detoxification. You declined linkage but have still been provided with the substance abuse resource sheet which has contact information for [facility], other detoxification facilities, and both local mobile crisis numbers who can assist with voluntary detoxification placement. [facility] is a local outpatient agency for substance abuse and mental health. If you experience worsening or a significant change in your symptoms notify your physician immediately, utilize mobile crisis, walk in to [facility] intervention [place], or return to the Emergency Department at any time for re-evaluation. Referrals: [facility] [Outside] - Follow up as needed [facility] [Outside] - Follow up as needed [facility] [Outside] - Follow up as needed (Local Voluntary Inpatient Detoxification) [facility] [Outside] - Follow up as needed (To initiate services walk ins are Monday-Monday 8:00AM-4:30PM.) I personally performed the services described in the documentation, reviewed and edited the documentation which was dictated to the scribe in my presence, and it accurately records my words and actions.
[2020-01-25 14:28] LABS: AMORPHOUS SEDIMENT,URINE TRACE /HPF; APPEARANCE,URINE CLOUDY; BILIRUBIN,URINE NEGATIVE (NEGATIVE); COLOR,URINE YELLOW; GLUCOSE, URINE NEGATIVE (NEGATIVE); KETONES,URINE NEGATIVE (NEGATIVE); LEUKOCYTE ESTERASE,URINE SMALL (NEGATIVE); NITRITE,URINE POSITIVE (NEGATIVE); PROTEIN,URINE NEGATIVE (NEGATIVE)
[2020-01-25 14:29] LABS: ABSOLUTE LYMPHOCYTES (AUTO) 0.9 10^3/uL (0.5-4.7); ABSOLUTE MONOCYTES (AUTO) 0.4 10^3/uL (0.1-1.4); ABSOLUTE NEUT (AUTO) 6.6 10^3/uL (1.7-8.2); BASOPHILS % (AUTO) 0.2 % (0-2); EOSINOPHILS % (AUTO) 0.1 % (0-6); HEMOGLOBIN 12.4 g/dL (12.0-15.5); MEAN CORPUSCULAR HEMOGLOBIN 30.1 pg (27.0-33.4); MEAN CORPUSCULAR HGB CONC 34.5 g/dL (32.0-36.0); MEAN CORPUSCULAR VOLUME 87 fl (80-97); MONOCYTES % (AUTO) 4.7 % (3-13); PLATELET COUNT 281 10^3/uL (150-450); RED BLOOD COUNT 4.14 10^6/uL (3.72-5.28); RED CELL DISTRIBUTION WIDTH 14.4 % (11.5-14.0); TOTAL CELLS COUNTED % (AUTO) 100 %; WHITE BLOOD COUNT 7.9 10^3/uL (4.0-10.5)
[2020-01-25 14:46] LABS: URINE BARBITURATES SCREEN NEGATIVE; URINE BENZODIAZEPINES SCREEN NEGATIVE; URINE COCAINE SCREEN NEGATIVE; URINE METHADONE SCREEN NEGATIVE; URINE PHENCYCLIDINE SCREEN NEGATIVE
[2020-01-25 14:47] LABS: ALBUMIN 4.1 g/dL (3.5-5.0); ALKALINE PHOSPHATASE 77 U/L (38-126); ANION GAP 10 (5-19); ASPARTATE AMINO TRANSFERASE 99 U/L (14-36); BILIRUBIN,DIRECT 0.4 mg/dL (0.0-0.4); BILIRUBIN,TOTAL 0.8 mg/dL (0.2-1.3); BLOOD UREA NITROGEN 10 mg/dL (7-20); CALCIUM 10.5 mg/dL (8.4-10.2); CARBON DIOXIDE 28 mmol/L (22-30); CHLORIDE 103 mmol/L (98-107); CREATINE KINASE 431 U/L (30-135); GLUCOSE 80 mg/dL (75-110); POTASSIUM 3.5 mmol/L (3.6-5.0)
[2020-01-25 14:49] LABS: ACETAMINOPHEN < 10 ug/mL (10-30); ALCOHOL < 10 mg/dL (NONE DETECTED); SALICYLATE < 1.0 mg/dL (2.0-20.0)
[2020-01-25 14:50] LABS: URINE MARIJUANA (THC) SCREEN UNCONFIRMED POSITIVE
--- NOTE | 2020-01-25 19:19 | PSYCHOLOGICAL NOTE ---
Psych Note - Psych Note Date seen by psych provider: 01/25/20 Time seen by psych provider: 12:52 - Observation at 1252. Evaluation with patient from [id number]. Psych Note: Patient is a 24 year old female who presented to the Emergency Department this afternoon via EMS after they found her walking down the street appearing altered. Urine Drug Screen positive for methamphetamine and cannabis. Observed patient at 1252 in her room, with psychomotor agitation, arms moving about, and required redirection. Patient subsequently medication with Benadryl 25MG and Haldol 5MG both Intramuscular at 1252. From [id number] evaluated patient. She was sleeping. She was easily aroused to name. She required her name said each time to stay awake. She identified she was in the hospital. She said she did not want any help with her substance abuse. She denied using anything this morning or last night. She also could not identify when she did last use and stated "I don't remember." She denied suicidal and homicidal ideation which were never a presenting concern. When asked if she was hungry she said "yes, and I'm thirsty." Attending ED Nurse made aware and provided food tray. Observed patient eating and drinking while sitting up in bed, then she laid back down. Chart review revealed patient has been seen by [facility] 08/11/2019, 08/04/2019, 07/19/2019 and 04/07/2018 all for similar etiology. She was encouraged to go to detox or follow up with outpatient substance abuse. 04/07/2018 visit noted patient was seen 2017 for opiate withdrawal and in 2011 for alcohol and cannabis use. The 08/11/2019 visit APS was contacted, had open case, noted patient chooses her lifestyle and does not seem to want assistance, so APS worker to speak with Antenna Specialist and likely close case. Clinical Presentation: Methamphetamine intoxication with Use Disorder Severe History of polysubstance use Medication recommendations made by the psychiatric medication provider Dr. Carlos IZAGUIRRE., includes: Use of Thorazine as needed as it manages psychosis and symptoms related to methamphetamine intoxication better than Haldol though Haldol is faster Impression/Plan: Patient is cleared from acute psychiatric services. Patient's presentation is consistent with methamphetamine intoxication, she has a history of use, and current Urine Drug Screen was positive for it. She declined linkage for help with her substance abuse. Provided patient (in her physical chart and in discharge paperwork) with the outpatient substance abuse resource sheet which highlighted both mobile crisis numbers who would assist with voluntary deto xification placement, highlighted [facility] as the local detoxification facility with self referral via walk in or phone call and could use mobile crisis, it listed other detoxification facilities, and documented [facility] for outpatient treatment. If patient changes her mind prior to actual discharge medical staff can link patient to [facility] voluntarily by calling and if bed availability getting bed reservation. If patient is interested and [place] full then she should utilize one of the mobile crisis numbers for assistance. Consulted with Dr. Wells regarding the management and care of patient. ED Physician in agreement with recommendations.
[2020-01-25 19:25] VITALS: BP 112/71
--- NOTE | 2020-01-25 22:05 | EKG REPORT ---
SEVERITY:- NORMAL ECG - SINUS RHYTHM : Confirmed by: Tiffany Wade MD 25-Jan-2020 22:05:23
== END 2020-01-25 19:25 | disposition home or self-care (01) ==
LOC: ER 12:39
DX: F15.129 Other stimulant abuse with intoxication, unspecified (principal); F14.10 Cocaine abuse, uncomplicated; R40.4 Transient alteration of awareness; J45.909 Unspecified asthma, uncomplicated; F17.210 Nicotine dependence, cigarettes, uncomplicated; L90.5 Scar conditions and fibrosis of skin
CPT/HCPCS: 93005; 99284; 96372; 36415; 80307 ×4; 82550; 83735; 84703; 85025; 80053; 81001; 84484; 93010; J1200; J1630

== ENCOUNTER 2020-01-29 17:08 | Emergency (ER) | payer SELFPAY ==
[2020-01-29] MEDS ORDERED: LORAZEPAM 1 MG TABLET PO ONE (17:34)
--- NOTE | 2020-01-29 17:40 | ER Document Report ---
ED Psych Disorder / Suicide - General Chief Complaint: Altered Mental Status Stated Complaint: BEHAVIROAL ISSUES Time Seen by Provider: 01/29/20 17:31 Mode of Arrival: Medic Information source: Patient, Emergency Med Personnel TRAVEL OUTSIDE OF THE [place] IN LAST 30 DAYS: No - HPI Notes: Patient is well-known here. She has a history of methamphetamine abuse with multiple emergency department visits for post methamphetamine use. She has come in several times incoherent confused after using methamphetamines. She refuses treatment and is then discharged to follow-up with Dex. Patient is here approximate 4 days ago for a similar presentation when she was confused and admitted to methamphetamine use. After the dragon worn off patient refused any further care and was discharged. Today paramedics were called because patient was incoherent and rambling and wandering into traffic. Patient is not able to give me any type of history and cannot coherently answer my questions. She will have inappropriate emotions laughing and crying at inappropriate times. She also answer my questions with sentences that are not related to when I asked her. Patient does specifically deny suicidal and homicidal ideation. She does specifically denied auditory and visual hallucinations. She denies using any type of drugs or alcohol. She denies any pain or problems. - Related Data Allergies/Adverse Reactions: No Known Allergies Allergy (Verified 11/14/18 15:21) Past Medical History - General Information source: Patient, [facility] Records - Social History Smoking Status: Current Every Day Smoker Frequency of alcohol use: None Drug Abuse: Methamphetamine Family History: Reviewed & Not Pertinent Pulmonary Medical History: Reports: Hx Asthma Renal/ Medical History: Denies: Hx Peritoneal Dialysis Psychiatric Medical History: Reports: Hx Attention Deficit Hyperactivity Disorder, Hx Bipolar Disorder - Immunizations Immunizations up to date: Yes Hx Diphtheria, Pertussis, Tetanus Vaccination: Yes Review of Systems - Review of Systems -: Yes ROS unobtainable due to patient's medical condition - Cannot obtain review of symptoms due to patient's altered mental status Physical Exam - Vital signs Vitals: Temp Pulse Resp BP Pulse Ox 99.4 F 122 H 20 134/107 H 100 01/29/20 17:43 01/29/20 17:43 01/29/20 17:43 01/29/20 17:43 01/29/20 17:43 Interpretation: Tachycardic - General General appearance: Appears well, Alert - HEENT Head: Normocephalic, Atraumatic Eyes: Normal Pupils: PERRL - Respiratory Respiratory status: No respiratory distress Chest status: Nontender Breath sounds: Normal Chest palpation: Normal - Cardiovascular Rhythm: Regular, Tachycardia Heart sounds: Normal auscultation Murmur: No - Abdominal Inspection: Normal Distension: No distension Bowel sounds: Normal Tenderness: Nontender Organomegaly: No organomegaly - Back Back: Normal, Nontender - Extremities General upper extremity: Normal inspection, Nontender, Normal color, Normal ROM, Normal temperature General lower extremity: Normal inspection, Nontender, Normal color, Normal ROM, Normal temperature, Normal weight bearing. No: Ashley's sign - Neurological Cognition: Confused Orientation: Disoriented to place, Disoriented to time, Disoriented to events [place] Coma Scale Eye Opening: Spontaneous Mary Coma Scale Verbal: Confused [place] Coma Scale Motor: Obeys Commands Mary Coma Scale Total: 14 Speech: Normal Motor strength normal: LUE, RUE, LLE, RLE Sensory: Normal - Psychological Associated symptoms: Agitated, Psychomotor agitation - Skin Skin Temperature: Warm Skin Moisture: Dry Skin Color: Normal Course - Re-evaluation Re-evalutation: 01/29/20 18:48 Patient refused to take p.o. meds so she was given IM Haldol. Currently at this time patient is resting comfortably in the bed and smiling she is awake and interacting with me but is significantly more calm. I have turned the care of the patient over to Dr. Castle will follow-up on laboratories and psychiatric consultation determine final disposition. Each time patient has been in the emergency department for this she has refused any further help and has requested to be discharged which anticipate will probably be the disposition this time as well. Patient was not involuntarily committed because patient denied homicidal and suicidal ideations as well as any type of auditory or visual hallucinations. Patient is also calm and cooperative now after the Haldol and I felt to be more appropriate to assess the need for involuntary commitment once the methamphetamines have been metabolized. - Vital Signs Vital signs: Temp Pulse Resp BP Pulse Ox 99.4 F 122 H 20 134/107 H 100 01/29/20 17:43 01/29/20 17:43 01/29/20 17:43 01/29/20 17:43 01/29/20 17:43 - Laboratory Result Diagrams: 01/29/20 18:00 01/29/20 18:00 Discharge - Discharge Clinical Impression: Methamphetamine abuse Condition: Fair Disposition: OTHER
[2020-01-29] MEDS ORDERED: RISPERIDONE 1 MG TABLET PO ONE (17:45)
[2020-01-29] MEDS ORDERED: HALOPERIDOL LACTATE INJ 5 MG/1 ML VIAL IM ONE (17:59)
[2020-01-29 18:46] LABS: ABSOLUTE LYMPHOCYTES (AUTO) 1.9 10^3/uL (0.5-4.7); ABSOLUTE MONOCYTES (AUTO) 0.5 10^3/uL (0.1-1.4); ABSOLUTE NEUT (AUTO) 5.5 10^3/uL (1.7-8.2); BASOPHILS % (AUTO) 0.5 % (0-2); EOSINOPHILS % (AUTO) 0.5 % (0-6); HEMATOCRIT 39.8 % (36.0-47.0); HEMOGLOBIN 13.9 g/dL (12.0-15.5); LYMPHOCYTES % (AUTO) 24.2 % (13-45); MEAN CORPUSCULAR HGB CONC 34.8 g/dL (32.0-36.0); MEAN CORPUSCULAR VOLUME 86 fl (80-97); MONOCYTES % (AUTO) 5.9 % (3-13); PLATELET COUNT 300 10^3/uL (150-450); RED BLOOD COUNT 4.63 10^6/uL (3.72-5.28); RED CELL DISTRIBUTION WIDTH 14.2 % (11.5-14.0); SEGMENTED NEUTROPHILS % (AUTO) 68.9 % (42-78); TOTAL CELLS COUNTED % (AUTO) 100 %
[2020-01-29 19:07] LABS: ALBUMIN 4.6 g/dL (3.5-5.0); ALKALINE PHOSPHATASE 94 U/L (38-126); ANION GAP 12 (5-19); ASPARTATE AMINO TRANSFERASE 110 U/L (14-36); BILIRUBIN,DIRECT 0.5 mg/dL (0.0-0.4); BILIRUBIN,TOTAL 0.9 mg/dL (0.2-1.3); BLOOD UREA NITROGEN 10 mg/dL (7-20); CALCIUM 10.2 mg/dL (8.4-10.2); CARBON DIOXIDE 21 mmol/L (22-30); CHLORIDE 106 mmol/L (98-107); GLUCOSE 119 mg/dL (75-110); POTASSIUM 3.9 mmol/L (3.6-5.0); TOTAL PROTEIN 8.2 g/dL (6.3-8.2)
[2020-01-29 19:09] LABS: ACETAMINOPHEN < 10 ug/mL (10-30); ALCOHOL < 10 mg/dL (NONE DETECTED); SALICYLATE < 1.0 mg/dL (2.0-20.0)
--- NOTE | 2020-01-29 21:11 | PSYCHOLOGICAL NOTE ---
Psych Note - Psych Note Date seen by psych provider: 01/29/20 Time seen by psych provider: 18:49 - Evaluation with patient from [id number]. Psych Note: Patient is a 24 year old female who presented to the emergency department this evening via EMS after being found wandering in traffic, rambling and incoherent. While in the emergency department she presented with mood lability (rotating between laughing and crying) and answered questions with sentences/responses not related to what was asked. Patient seen in the emergency department 01/25/2020 for similar etiology, denied recent drug use though was positive for methamphetamine and cannabis, denied having a problem and declined linkage to detoxification or other supports. Patient sedated from likely being under the influence of methamphetamine and then being administered medications to aid with symptom (mood lability, not making sense) management. She denied drug use. She denied wanting help. Patient stated "I'm just tired." She kept falling asleep and required her name being said or gentle shake of extremity to stay awake. 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 The list also has both mobile crisis numbers as well as other detox facilities listed. If patient is still in the ED in the AM and [facility] has bed availability will consider substance abuse IVC (multiple ED visit with similar etiology, she continuously denies using drugs or having a problem and declines linkage to treatment/supports) but as of now patient is voluntary and can leave. Consulted with Dr. Wells regarding the management and care of patient. ED Physician in agreement with recommendations.
--- NOTE | 2020-01-29 22:10 | EKG REPORT ---
SEVERITY:- OTHERWISE NORMAL ECG - SINUS TACHYCARDIA : Confirmed by: Noreen Min 29-Jan-2020 22:09:34
--- NOTE | 2020-01-30 14:12 | ER Document Report ---
Doctor's Note Notes: 01/30/20 14:12 PHYSICAL EXAMINATION: GENERAL: Sleeping upon arrival. Well-appearing and in no acute distress. Room smelled of urine. HEAD: Atraumatic, normocephalic. EYES: sclera anicteric, conjunctiva are normal. ENT: nares patent. Moist mucous membranes. NECK: Normal range of motion, supple without lymphadenopathy LUNGS: CTAB and equal. No wheezes rales or rhonchi. HEART: Regular rate and rhythm without murmurs ABDOMEN: Soft, nontender, normal bowel sounds, no guarding. EXTREMITIES: Normal range of motion, no pitting edema. No cyanosis. BACK: No midline tenderness, no step-off or deformity. No CVA tenderness NEUROLOGICAL: Cranial nerves grossly intact. Normal speech. Normal gait. PSYCH: Normal mood, normal affect. SKIN: Warm, Dry, normal turgor, no rashes or lesions noted Patient appears medically clear for discharge or transfer pending behavioral health team disposition. 01/30/20 20:33 Report and handoff given to Nikki Prieto NP
[2020-01-30 19:39] LABS: APPEARANCE,URINE SLIGHTLY-CLOUDY; BILIRUBIN,URINE NEGATIVE (NEGATIVE); COLOR,URINE AMBER; GLUCOSE, URINE NEGATIVE (NEGATIVE); KETONES,URINE TRACE mg/dL (NEGATIVE); LEUKOCYTE ESTERASE,URINE SMALL (NEGATIVE); NITRITE,URINE POSITIVE (NEGATIVE); PROTEIN,URINE 30 mg/dL (NEGATIVE); URINE SPECIFIC GRAVITY 1.024
[2020-01-30 19:50] LABS: URINE BARBITURATES SCREEN NEGATIVE; URINE BENZODIAZEPINES SCREEN NEGATIVE; URINE METHADONE SCREEN NEGATIVE; URINE PHENCYCLIDINE SCREEN NEGATIVE
[2020-01-30 19:54] LABS: URINE COCAINE SCREEN UNCONFIRMED POSITIVE; URINE MARIJUANA (THC) SCREEN UNCONFIRMED POSITIVE
--- NOTE | 2020-01-31 13:22 | PSYCHOLOGICAL NOTE ---
Psych Note - Psych Note Date seen by psych provider: 01/31/20 Time seen by psych provider: 11:40 Psych Note: Reason for Consult:AMS Check in conducted with patient: Patient reports she has no memory of coming to [facility] ED but then stated EMS brought her. She denies understanding why EMS brought her to [facility] stating, " to waste time." Patient stated she remembers talking to "someone in [place]." She confirms that she lives in [place]. Patient has a long history of substance abuse, specifically methamphetamines, and repeatedly comes into to [facility] ED under the influence. Patient continues to demonstrate poor insight into her addiction and the dangers she is putting herself into. Patient was placed under IVC yesterday. She has been accepted by [facility]; transportation will be requested. Dr. Wells was consulted to care management of this patient; and physicians in agreement with recommendations and disposition.
[2020-01-31 15:19] VITALS: BP 104/66
--- NOTE | 2020-01-31 15:34 | ER Document Report ---
Doctor's Note Notes: 01/31/20 15:37 Patient is on IVC papers and she has had that fixed. Rounded on her. She states that she has been doing okay. When I updated her about the plan she became acutely angry because she did not know about the plan. She became aggressive towards me. She got up into my face and was threatening. Our behavioral health social worker delinquency prevention, Tammy Toure was able to have her sit back down and help me diffuse the situation. She was explained that we have concerns for her methamphetamine use and that she is not able to take care of herself and that is why she is on IVC. She had some difficulty accepting this initially but then was able to accept and quietly went with [facility] to the [facility]. She was stable upon transfer.
--- NOTE | 2020-02-03 09:00 | PSYCHOLOGICAL NOTE ---
Psych Note - Psych Note Date seen by psych provider: 01/30/20 Time seen by psych provider: 11:05 Psych Note: Patient is a 24 year old female in the Emergency Department voluntarily currently for what appears to be substance induced psychosis and mood disorder. She has had numerous previous ED visits with similar etiology, continuously denied use or having a problem and declines linkage to treatment/supports. Patient has slept most of her time in the hospital. Urine Drug Screen available now and positive for methamphetamine, cocaine and cannabis. Clinical Presentation: Polysubstance Use Methamphetamine Cocaine Cannabis Substance Induced psychosis and mood disorder Impression/Plan: Recommendation to move forward with FULL Substance Abuse Involuntary Commitment. Patient was seen in the ED 01/25/2020 as well as mizra us other visits for similar etiology. Most times she is found wandering by LE or EMS, walking in roads and not mindful of surrounding/cars, altered, not making sense. These behaviors make patient a danger to self and others. She denies drug use, having a problem and declines linkage to treatment/supports. This time she denied drug use and said she was just tired. Patient slept almost a full 24 nikki rs. Her Urine Drug Screen is positive for methamphetamine, cocaine and cannabis. Consulted with Dr. Wells regarding the management and care of patient. ED Physician in agreement with recommendations. Made Substance Abuse IVC referral to [facility].
== END 2020-01-31 15:55 | disposition other institution (70) ==
LOC: ER 17:08
DX: F15.10 Other stimulant abuse, uncomplicated (principal); R41.0 Disorientation, unspecified; R00.0 Tachycardia, unspecified; R45.1 Restlessness and agitation; F17.200 Nicotine dependence, unspecified, uncomplicated
CPT/HCPCS: 93005; 99285; 96372; 36415; 80307 ×4; 84703; 85025; 80053; 81001; 93010; J1630

== ENCOUNTER 2020-02-08 09:28 | Emergency (ER) | payer SELFPAY ==
[2020-02-08] MEDS ORDERED: HALOPERIDOL LACTATE INJ 5 MG/1 ML VIAL IM ONE (09:43)
--- NOTE | 2020-02-08 09:50 | ER Document Report ---
ED General <ANGEL CHUN - Last Filed: 02/08/20 15:09> - General TRAVEL OUTSIDE OF THE [place] IN LAST 30 DAYS: No - Related Data Home Medications: Unknown <WILLIS MARTINEZ - Last Filed: 02/08/20 15:23> - General Chief Complaint: Psych Problem Stated Complaint: PSYCH PROBLEM Time Seen by Provider: 02/08/20 09:39 Primary Care Provider: [facility] [Outside] - Follow up as needed (Local Voluntary Detoxification Center) [facility] [Outside] - Follow up as needed [facility] [Outside] - Follow up as needed (Local Outpatient mental health and substance abuse treatment. To initiate services walk in Mondays-Fridays 8:00AM-4:30PM.) [facility] [Outside] - Follow up as needed - [facility] Notes: Patient is a 24-year-old female, evidently well-known to the emergency department. She was picked up by EMS when she was found incoherent in a gas station. She has a history of methamphetamine abuse. She evidently reacts like this regularly. She is regularly brought to the emergency department, IVC petition was filed. The patient has repeatedly refused any help with substance abuse. Today she is brought in, rambling incoherently, very labile and emoti ons. She will not appropriately interact with this examiner in any way. (WILLIS MARTINEZ) - Related Data Allergies/Adverse Reactions: No Known Allergies Allergy (Verified 11/14/18 15:21) Past Medical History - General Information source: Emergency Med Personnel, [facility] Records - Social History Smoking Status: Current Every Day Smoker Drug Abuse: Methamphetamine Family History: Reviewed & Not Pertinent Pulmonary Medical History: Reports: Hx Asthma Renal/ Medical History: Denies: Hx Peritoneal Dialysis Psychiatric Medical History: Reports: Hx Attention Deficit Hyperactivity Disorder, Hx Bipolar Disorder - Immunizations Immunizations up to date: Yes Hx Diphtheria, Pertussis, Tetanus Vaccination: Yes <WILLIS MARTINEZ - Last Filed: 02/08/20 15:23> Review of Systems - Review of Systems -: Yes ROS unobtainable due to patient's medical condition <WILLIS MARTINEZ - Last Filed: 02/08/20 15:23> Physical Exam <WILLIS MARTINEZ - Last Filed: 02/08/20 15:23> - Vital signs Vitals: Pulse Ox 100 02/08/20 10:11 - Notes Notes: This is an extremely disheveled 24-year-old female who appears her stated age in a moderate amount of distress. She is tearful, appears frightened, seems to be reacting to some sort of internal stimuli. Head is normocephalic and appears atraumatic. Pupils are equal and round. Patient is moving all 4 extremities spontaneously. She is tearful, agitated. She has peeling skin noted about the left hand. Again, exam is markedly limited as patient is extremely tearful, exhibiting paranoid tendencies, and will not allow this examiner to approach her. After being medicated with Haldol, I was able to examine the patient. She was resting comfortably. Steps were taken by this examiner to be sure not to disturb her. Oral mucosa is moist. Severe dental decay consistent with methamphetamine abuse. Heart is regular rate and rhythm, lungs are clear to au scultation bilaterally. Abdomen soft, appears nontender with normoactive bowel sounds. Patient does move all 4 extremities spontaneously. (WILLIS MARTINEZ) Course - Laboratory Result Diagrams: 02/08/20 10:11 02/08/20 10:11 <ANGEL CHUN - Last Filed: 02/08/20 15:09> - Laboratory Result Diagrams: 02/08/20 10:11 02/08/20 10:11 <WILLIS MARTINEZ - Last Filed: 02/08/20 15:23> - Re-evaluation Re-evalutation: 02/08/20 09:49 Patient presents to the emergency department for evaluation via EMS. The patient is known to the department as being a patient who heavily abuses methamphetamines. It seems from review of past records that she has reacted well to IM Haldol in the past. This is ordered. I will fill out IVC paperwork at this time. Awaiting psychosocial evaluation, and hopefully a reaction to the medication which will allow more thorough evaluation. 02/08/20 14:06 I did discuss this patient with Margaret of the psychosocial team. This patient is well-known to the department. She was IVC in the past because of her recidivism in regards to drug use, significant psychosis associated with methamphetamine abuse. At any rate, the patient does not have any mental illness to treat beyond her drug addiction issues. She has not expressed any interest in receiving any sort of treatment. She was already IVC then placed index within the last few weeks. Patient will be discharged from the department when she becomes more lucid. Otherwise she has been resting comfortably. She is oxygenating 100% on room air. Urinalysis is still pending but largely inco nsequential at this time. 02/08/20 15:07 I was able to wake patient easily. She is easily arousable, alert and oriented. She knows where she is, she tells me is January 2020. She denies use of any methamphetamine today, even when she was confronted with the fact that she acted the same as she had in the past when on meth. She states she does not know what happened, but she remembers things, feels comfortable going home. She does not want any help with drug issues. She states that she feels fine. She does not want to wait for urinalysis. She denies any possibility of . She denies any fevers or chills. She denies any nausea or vomiting. She denies any dysuria, hematuria, urinary frequency. Again, this patient has a longstanding history of drug abuse, but IVC has not offered her any help. She does not wish to be here, is cooperative, exhibiting linear thinking. I will go ahead and discharge her at this time. She is told that she can return anytime to seek out help for drug addiction issues. (WILLIS MARTINEZ) - Vital Signs Vital signs: Temp Pulse Resp BP Pulse Ox 98.2 F 118 H 24 H 109/61 100 02/08/20 10:20 02/08/20 10:20 02/08/20 10:20 02/08/20 10:20 02/08/20 12:00 - Laboratory Laboratory results interpreted by me: 02/08/20 02/08/20 10:11 10:11 Hct 35.4 L Seg Neutrophils % 80.0 H AST 134 H ALT 157 H Salicylates < 1.0 L Acetaminophen < 10 L - EKG Interpretation by Me Additional EKG results interpreted by me: 02/08/20 14:07 Sinus mechanism with a rate of 100 bpm. Normal axis and intervals. No acute ST changes concerning for ischemia or infarction. (WILLIS MARTINEZ) Discharge <ANGEL CHUN - Last Filed: 02/08/20 15:09> <WILLIS MARTINEZ - Last Filed: 02/08/20 15:23> - Discharge Clinical Impression: Methamphetamine abuse, Altered mental status, Psychosis Condition: Stable Disposition: HOME, SELF-CARE Instructions: Ampetamine Abuse ([facility]) Additional Instructions: You have been evaluated by both medical and behavioral health teams for altered mental status, psychosis, and with chronic history of methamphetamine use. You have been deemed appropriate for discharge. While in the emergency department you received the following services/or had access to: Medical screening and assessment, nursing services, dietary services, pharmacological services, one-on-one counseling and/or psychotherapy, environmental services, and continuous observation by a patient safety specialist. You are recommended to abstain from methamphetamine and other drug use as they can cause and/or exacerbate mental health symptoms related to Schizophrenia and Bipolar. [facility] is local voluntary detoxification center. [facility] is local outpatient provider who addressed mental health and substance abuse. Altered Mental Status (Psychosis) An altered mental status is a change in the normal functioning of the brain. This alteration of function can range from minor decreased brain function with some forgetfulness and confusion to complete loss of consciousness and coma. There are many possible causes of an altered mental status and include brain injuries such as trauma or strokes, problems with oxygen supply to the brain, fever and infections of the brain and/or elsewhere in the body, metabolic abnormalities such as low or high blood sugar, overdoses or excessive medication ingestion, and mental and psychiatric illnesses. Sometimes the altered mental status resolves and a definite cause is not determined. If a cause for your altered mental status was found, it has likely been corrected. Your evaluation has not shown any condition that requires that you be admitted to the hospital. It is believed that you are safe to leave and return to your home. If you have a return of your symptoms, you should return for re-evaluation. AMPHETAMINE / METHAMPHETAMINE ABUSE: Amphetamines are addicting stimulants. Amphetamines overstimulate the nervous system and give a false feeling of power and mastery. These drugs may be obtained as prescription pills for weight loss, narcolepsy, or attention-deficit disorder. More often they're bought as an illegal street drug, methamphetamine (crank, crystal, speed). Using amphetamines repeatedly can lead to serious medical problems including malnutrition, severe depression, and paranoia. It can take increasing amounts to feel good. Eventually, there will be a "burn out." When you go off amphetamines there is a period of depression that may last for weeks or even months. High doses of amphetamines can cause seizures, confusion, hallucinations, delusions, high blood pressure, muscle damage, heart damage, or sudden . Many times these deadly complications occur even with "normal" doses. Injection of amphetamines is risky for developing abscesses, endocarditis (heart infection), pneumonia, and AIDS. Withdrawal from amphetamines often causes anxiety, depression, and drug cravings. Some users become paranoid and psychotic. There may be cramps, nausea, and vomiting. Many treatment programs are available, but you must make the decision to quit. Medication can be prescribed to control the symptoms of amphetamine toxicity (beta blockers or benzodiazepines). Withdrawal symptoms may require tranquilizers. FOLLOW-UP CARE: You are recommended to utilize [facility] for voluntary detoxification and then [facility] for local dual diagnosis mental health and substance abuse treatment. You have been provided contact information for both, as well as both local mobile crisis numbers. If you experience worsening or a significant change in your symptoms notify your physician immediately, utilize mobile crisis or [facility], or return to the Emergency Department at any time for re-evaluation. Referrals: [facility] [Outside] - Follow up as needed [facility] [Outside] - Follow up as needed [facility] [Outside] - Follow up as needed (Local Voluntary Detoxification Center) [facility] [Outside] - Follow up as needed (Local Outpatient mental health and substance abuse treatment. To initiate services walk in Mondays-Fridays 8:00AM-4:30PM.)
[2020-02-08 10:28] LABS: ABSOLUTE LYMPHOCYTES (AUTO) 1.3 10^3/uL (0.5-4.7); ABSOLUTE MONOCYTES (AUTO) 0.5 10^3/uL (0.1-1.4); ABSOLUTE NEUT (AUTO) 7.6 10^3/uL (1.7-8.2); BASOPHILS % (AUTO) 0.3 % (0-2); HEMATOCRIT 35.4 % (36.0-47.0); HEMOGLOBIN 12.2 g/dL (12.0-15.5); LYMPHOCYTES % (AUTO) 14.1 % (13-45); MEAN CORPUSCULAR HEMOGLOBIN 29.8 pg (27.0-33.4); MEAN CORPUSCULAR HGB CONC 34.5 g/dL (32.0-36.0); MEAN CORPUSCULAR VOLUME 86 fl (80-97); MONOCYTES % (AUTO) 5.6 % (3-13); PLATELET COUNT 228 10^3/uL (150-450); TOTAL CELLS COUNTED % (AUTO) 100 %; WHITE BLOOD COUNT 9.5 10^3/uL (4.0-10.5)
[2020-02-08 10:47] LABS: ALBUMIN 4.4 g/dL (3.5-5.0); ALKALINE PHOSPHATASE 88 U/L (38-126); ANION GAP 13 (5-19); ASPARTATE AMINO TRANSFERASE 134 U/L (14-36); BILIRUBIN,DIRECT 0.4 mg/dL (0.0-0.4); BLOOD UREA NITROGEN 17 mg/dL (7-20); CALCIUM 9.6 mg/dL (8.4-10.2); CARBON DIOXIDE 23 mmol/L (22-30); CHLORIDE 104 mmol/L (98-107); GLUCOSE 94 mg/dL (75-110); POTASSIUM 3.9 mmol/L (3.6-5.0); TOTAL PROTEIN 7.2 g/dL (6.3-8.2)
[2020-02-08 10:49] LABS: ACETAMINOPHEN < 10 ug/mL (10-30); ALCOHOL < 10 mg/dL (NONE DETECTED); SALICYLATE < 1.0 mg/dL (2.0-20.0)
--- NOTE | 2020-02-08 12:36 | EKG REPORT ---
SEVERITY:- OTHERWISE NORMAL ECG - SINUS TACHYCARDIA : Confirmed by: Zana Plummer MD 08-Feb-2020 12:34:58
[2020-02-08 15:36] VITALS: BP 103/80
--- NOTE | 2020-02-12 01:36 | PSYCHOLOGICAL NOTE ---
Psych Note - Psych Note Date seen by psych provider: 02/08/20 Time seen by psych provider: 13:05 - Attempted evaluation at 1305. Discussion with Attending ED Physician at 1518. Psych Note: Patient is a 25 year old female who presented to the emergency department this morning via EMS for altered mental status. She was found at a local gas station, acting out of normal, was noted to be rocking back and forth, had erratic extreme movements, often repeated names of people and noted they killed her boyfriend, and her clothes.shoes/hair were wet. Patient has been seen numerous times in the emergency department for altered mental status. She is a known methamphetamine user with previous Urine Drug Screens being positive for it. Patient was put on a 24 Hour Petition for Evaluation. At 1305 attempted to evaluate patient however she was sleeping with mouth wide open. She would not wake to her name being said loudly numerous times. She had been medicated with Haldol 5MG Intramuscular at 0949. Note patient was seen by this clinician 01/29/2020 for similar etiology and sent to [facility] as a substance abuse Involuntary Commitment due to every previous visit declining linkage and not doing outpatient follow up. She was seen by this clinician 01/25/2020 for similar etiology and as mentioned denied linkage to [facility] as well as outpatient follow up to [facility]. Each time patient denied drug use, denied h aving a problem and denied any type of linkage. At 1518 Attending ED Physician reported patient was awake, alert, oriented, and denied drug use. She stated since patient was sober and coherent she could be discharged. 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 Recommendation to RESCIND 24 Hour Petition for Evaluation. Patient has time to sober up. She has been seen numerous times in the emergency department with similar etiology. Typically she is offered linkage to voluntary detoxification or at the very least outpatient dual diagnosis treatment but declines. The last time she was seen was 01/29/2020 when she was Involuntarily Committed for substance abuse and sent to [facility] (in an attempt to do something different) yet she is back today for the same thing. Provided contact information for [facility] (voluntary inpatient), [facility] (outpatient dual diagnosis, walk ins Mondays-Fridays [phone]), and both local mobile crisis numbers. Consulted with Dr. Wells regarding the management and care of patient. ED Physician in agreement with recommendations.
== END 2020-02-08 15:36 | disposition home or self-care (01) ==
LOC: ER 09:28
DX: F15.10 Other stimulant abuse, uncomplicated (principal); R41.82 Altered mental status, unspecified; F29 Unspecified psychosis not due to a substance or known physiological condition; K02.9 Dental caries, unspecified; F17.200 Nicotine dependence, unspecified, uncomplicated
CPT/HCPCS: 93005; 99284; 96372; 36415; 80307 ×3; 85025; 80053; 93010; J1630